=== PATIENT | male | born 1945 | race Caucasian/White ===

== ENCOUNTER 2024-06-14 12:19 | Emergency (ER) | payer MEDICARE, OTHER, SELFPAY ==
--- NOTE | 2024-06-14 12:24 | ED_ITS ---
HPI - Skin/Abscess/Foreign Bdy General Chief complaint: Skin/Abscess/Foreign Body Stated complaint: Rash on stomach Time Seen by Provider: 06/14/24 12:24 Source: patient Mode of arrival: ambulatory Limitations: no limitations History of Present Illness HPI narrative: Patient is an 78-year-old male who presents with 2 weeks of progressing rash to left side of trunk. States it started as a few bumps then became red and itchy. Has been using Cereve moisturizer with anti-itch. Patient states the rash has not been painful. Does have 1 dose of shingles vaccine but did not get a 2nd due to reaction. Patient denies any fever, chills, nausea, vomiting, diarrhea. Patient states he feels fine other than the rash looking worse. Related Data Home Medications ?Medication ?Instructions ?Recorded ?Confirmed ?Last Taken ?Type amiodarone 200 mg tablet mg 06/14/24 Unknown History apixaban 5 mg tablet (Eliquis) mg 06/14/24 Unknown History carvedilol 25 mg tablet mg 06/14/24 Unknown History dapagliflozin propanediol 10 mg mg 06/14/24 Unknown History tablet (Farxiga) tizanidine 2 mg tablet mg 06/14/24 Unknown History Allergies Allergy/AdvReac Type Severity Reaction Status Date / Time No Known Allergies Allergy Verified 06/14/24 12:44 Review of Systems 2 Review of Systems: All systems reviewed & are unremarkable except as noted in HPI and below Constitutional: Constitutional: Denies body ache(s), Denies chills, Denies fatigue, Denies fever(s), Denies headache(s), Denies malaise and Denies weakness Eyes: Eyes: Denies blurry vision, Denies irritation and Denies loss of vision ENT: Denies otalgia, Denies headache(s), Denies nasal discharge, Denies sinus pain and Denies sore throat Cardiovascular: Cardiovascular: Denies chest pain, Denies irregular heart rhythm and Denies dyspnea Respiratory: Respiratory: Denies dyspnea Gastrointestinal: Gastrointestinal: Denies abdominal pain, Denies melena, Denies hematochezia, Denies diarrhea, Denies nausea and Denies vomiting Musculoskeletal: Musculoskeletal: Denies back pain, Denies myalgias and Denies arthralgias Integumentary/Breasts: Skin/Breast: Reports pruritus and Reports rash Neurologic: Denies headache(s), Denies loss of vision and Denies weakness Psychiatric: Psychiatric: Reports no additional psychiatric complaints Endocrine: Endocrine: Denies fatigue PMFSH Comments At time of signature, agree with nursing past medical, surgical, social and family history. There is no relevant family history pertinent to the presenting complaint. Exam 2 Const: General: cooperative, healthy appearing, comfortable, no acute distress and well nourished Nutritional Appearance: well nourished O rientation/consciousness: patient oriented x3 Limitations: no limitations HENMT: Head: normal to inspection, normocephalic and atraumatic Ears: h earing grossly normal bilaterally and external ears normal Face/Nose/Sinus: N ormal external nose present, normal facial exam and face symmetric Face and sinus: normal facial exam and face symmetric Mouth: Yes lip normal Eyes: General: appearance normal, both eyes and all related structures A lignment and Position: alignment normal and position normal Periorbital: p eriorbital findings normal Eyelids: eyelids normal Pupils: Equal, round and reactive pupils present EOM: EOMs intact bilaterally Neck: Neck: normal visual inspection, full ROM and supple Chest: Chest palpation & inspection: normal inspection of the chest Resp: Effort & Inspection: normal respiratory effort and able to speak in complete sentences Auscultation: clear to auscultation bilaterally Cardio: Rate: regular rate Rhythm: regular rhythm Heart sounds: S1 normal heart sound present and S2 normal heart sound present GI: Inspection: normal to inspection Skin: General skin exam: normal color Rashes: rashes noted left truncal size (see images below) and surface warm Other: Neuro: General: patient oriented x3 and moves all extremities Cranial nerves: Yes Equal, round and reactive pupils present Speech: normal speech Gait exam (Neuro): Normal gait present Extrem: General: normal to inspection, full ROM and no edema Psych: Appearance: grossly normal and well kempt Mental Status: mental status grossly normal Speech and movement: Normal speech and movement present Affect: normal affect Attitude: cooperative Thought process: Normal thought process present Course Course Emergency Course: Patient is aware of diagnosis, understands and agrees to treatment plan. Anticipatory guidance given. Patient agrees to follow-up as directed and is aware of reasons to seek care at the emergency department. Portions of this record may have been created with voice recognition software Level of Care: Express Care Visit Vital Signs Vital signs: Reviewed MDM - Skin/Abscess/Foreign Bdy MDM Narrative Medical decision making narrative: Permission granted for pictures from patient. Substantial rash as seen in pictures. Consistent with healing shingles rash as it does not cross midline and follows dermatome. Surrounding erythema and warmth consistent with cellulitis. Will treat with antibiotics. Encourage patient to continue use of Cereve or Aquaphor to keep rash moist. Instructed patient to follow-up with PCP in 1 week if not improving. Did educate patient that rash may take up to 6 weeks to fully heal Pt well hydrated appearing, in no respiratory distress, hemodynamically stable. Recommend supportive care. The patient is stable at time of discharge the clinical impression was discussed and the patient was given the opportunity to ask questions, which were addressed as completely as possible given the information available at present. Anticipatory guidance and return to care precautions were discussed and the importance of primary care follow-up was stressed and encouraged. The patient voiced understanding of the plan, indications to return, and the need for follow-up. Exam findings show no acute concerns or changes Patient is appropriate for outpatient treatment and follow-up. Differential Diagnosis Differential diagnosis: Likely abscess of skin or subcutaneous tissue, herpes zoster, allergic reaction to drug, cellulitis, eczema and contact dermatitis Medical Records Attestation: I reviewed the patient's medical records. Discharge Plan Discharge Clinical Impression: Shingles Qualifiers: Herpes zoster complications: without complications Qualified Code(s): B02.9 - Zoster without complications Cellulitis Qualifiers: Site of cellulitis: trunk Site of cellulitis of trunk: unspecified site Q ualified Code(s): L03.319 - Cellulitis of trunk, unspecified Patient Disposition: Home Condition: Stable Instructions: Shingles (ED), Cellulitis (ED) Additional Instructions: Take antibiotics as prescribed. Continue to use your moisturizer or Aquaphor on rash to prevent it from drying out. Alternate Tylenol and Motrin for pain, body aches, fever. You may take 2 regular strength Tylenol every 4 hours, alternate with 3 regular strength Motrin every 6 hours so you are taking something every 2-3 hours. Shingles pain/rash can last weeks, sometimes months. If you experience any worsening redness, swelling, streaking (red lines), fever or chills please go to the ER. Follow-up with your doctor in the next week if no improvement. Patient Language: Romansh Prescriptions: New cephalexin 500 mg capsule 500 mg PO QID 7 Days Qty: 28 0RF No Action carvedilol 25 mg tablet tizanidine 2 mg tablet amiodarone 200 mg tablet Eliquis 5 mg tablet dapagliflozin propanediol [Farxiga] 10 mg tablet Follow-up/Referrals: Eric,Rios Summers MD [Primary Care Provider] - 3 Days Time of Disposition: 13:08
[2024-06-14 12:33] VITALS: BP 104/75; PULSE 93; RESP 16; TEMP 35.8; O2SAT 96
--- OUTSIDE RECORDS SUMMARY | 2024-06-14 13:29 | XMS_ITS | Clinical Summary ---
Author Organization [facility] at the [facility] Office [facility] Address [address] [place] [address] Care Team Providers Care Preprint Analyst Name Role Phone Rios Reyes MD Primary Care Provid er Abhi Stearns MD Unavailable [phone] Allergies No known active allergies Medications elijfhzn-ddo-XF-lyc open-lutein 0.4-2-250 mg-mg-mcg tablet Take 1 tablet by mouth daily Active esomeprazole DR (NexIUM) 20 mg capsule Take 1 capsule (20 mg total) by mouth daily 6 Active predniSONE (DELTASONE) 10 mg tablet Take 1 tablet (10 mg) by mouth daily Active Eliquis 5 mg tabletIndications:C hronic anticoagulation TAKE 1 TABLET(5 MG) BY MOUTH TWICE DAILY 180 tablet 3 4 Active carvediloL (COREG) 25 mg tabletIndications:P aroxysmal atrial fibrillation (HCC) TAKE 1 TABLET(25 MG) BY MOUTH TWICE DAILY WITH MEALS 180 tablet 3 4 Active magnesium oxide (MAG-OX) 400 mg (241.3 mg elemental magnesium) tablet 4 Active baclofen (LIORESAL) 5 mg tablet Take 1 tablet (5 mg total) by mouth 3 (three) times a day as needed 4 Active dapagliflozin propanediol (FARXIGA) 10 mg tablet TAKE 1/2 TABLET(5 MG) BY MOUTH DAILY 45 tablet 3 5 Active lisinopriL (PRINIVIL,ZESTRIL) 10 mg tablet Take 1 tablet (10 mg total) by mouth daily 90 tablet 1 4 025 Discontin ued(Other ) amiodarone (PACERONE) 200 mg tablet Take 1 tablet (200 mg total) by mouth daily 90 tablet 3 5 025 Discontin ued(Thera py completed ) spironolactone (ALDACTONE) 25 mg tablet Take 0.5 tablets (12.5 mg total) by mouth daily 45 tablet 3 5 025 Discontin ued(Other ) Active Problems Problem Noted Date Diagnosed Date Anticoagulation management encounter 05/23/2024 Heart failure with reduced ejection fraction Acute respiratory failure 01/31/2024 Respiratory infection 01/30/2024 Preoperative cardiovascular examination 10/09/19 History of DVT (deep vein thrombosis) 05/25/2023 Other thrombophilia 01/09/2023 Paroxysmal atrial fibrillation 12/25/2022 Pulmonary embolism 12/19/2021 Assessment & Plan (07/21/2022 1:23 PM CDT): History of pulmonary emboli on Eliquis patient is tolerating well and offering no new complaints prior advised to continue same Shortness of breath 10/11/2021 Hematoma of leg, left, initial encounter 022 Overview (03/12/2021): Added automatically from request for surgery [id number] Injury of lower extremity 07/05/2020 Uncontrolled type 2 diabetes mellitus with hyper glycemia 07/05/2020 Essential hypertension 10/06/2019 Assessment & Plan (07/21/2022 1:22 PM CDT): Longstanding see hypertension patient is tolerating medications well blood pressure under good control patient to continue present medication and salt restriction Assessment & Plan (04/12/2020 1:52 PM REGISTERED DIETETIC TECHNICIAN): Well controlled Assessment & Plan (10/06/2019 2:24 PM CDT): Repeat 140/80. Patient states blood pressures run low which showed home. Generally systolic 120 in below LBBB (left bundle branch block) 06/24/2018 Assessment & Plan (04/12/2020 1:52 PM REGISTERED DIETETIC TECHNICIAN): Treated with INSURANCE EXAMINER. Not dependent Assessment & Plan (10/06/2019 2:24 PM CDT): Treated with INSURANCE EXAMINER Assessment & Plan (06/24/2018 1:44 PM CDT): INSURANCE EXAMINER Cardiac resynchronization th erapy defibrillator (INSURANCE EXAMINER-D) in place 06/24/2018 Assessment & Plan (07/21/2022 1:21 PM CDT): Patient has a dilated cardiomyopathy with left bundle-branch block received a biventricular pacemaker patient has markedly improved after that and patient is a offering no complaint device is functioning is being monitored Assessment & Plan (04/12/2020 1:45 PM REGISTERED DIETETIC TECHNICIAN): Check today shows normal function. Battery 6 months. Stable impedance excellent threshold. In sensing. No events. Pacing 96% bi V. No arrhythmias Assessment & Plan (10/06/2019 2:23 PM CDT): Check shows normal function. Underlying rhythm self sinus rhythm left bundle- branch block. 70% a paced 90% V paced. Stable lead function. Slight increase in LV thresholds and output increased. No events. Battery 1 year Assessment & Plan (06/24/2018 2:01 PM CDT): Normal function. Stable LV lead function around 3 volts at 0.6 milliseconds. 100% bi V paced 71% atrial paced no a arrhythmias. Better life about 2 years Dilated cardiomyopathy 06/24/2018 Assessment & Plan (07/21/2022 1:22 PM CDT): Patient has dilated cardiomyopathy on unloading therapy with lisinopril and Coreg he is tolerating well patient has no orthopnea PND or ankle edema will recheck the electrolytes renal function and proBNP patient to continue salt restricted diet Assessment & Plan (04/12/2020 1:52 PM REGISTERED DIETETIC TECHNICIAN): Continue lisinopril and Toprol. Class 1. Assessment & Plan (10/06/2019 2:23 PM CDT): Resolved with INSURANCE EXAMINER. Continue lisinopril and Toprol Assessment & Plan (06/24/2018 2:00 PM CDT): No CHF. Continue lisinopril and metoprolol 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CMS/HCC) 05/11/2017 Biventricular implantable ca rdioverter-defibrillator (ICD) in situ 05/23/2015 Overview (02/09/2024): Last Assessment & Plan: Check today shows normal function. Battery 6 months. Stable impedance excellent threshold. In sensing. No events. Pacing 96% bi V. No arrhythmias Encounters Date Type Department Care Team Description 06/10/2024 Orders Only [facility] PreAdmission Testing [address] [place] [address] Pepper Collins RN 06/09/2024 10:15 AM CDT Office Visit [facility] Orthopedics and Sports Medicine [address] [place] [phone] Wilmar Samayoa DO Traumatic complete tear of left rotator cuff, initial encounter (Primary Dx); Primary osteoarthritis of left shoulder 06/07/2024 11:30 AM CDT Ancillary Procedure [facility] [address] [facility] [address] [place] [phone] LBBB (left bundle branch block); Paroxysmal atrial fibrillation (HCC) 05/27/2024 9:30 AM CDT Clinical Support [facility] Cardiology [address] [facility] [address] [phone] Essential hypertension (Primary Dx) 05/24/2024 Orders Only Arrhythmia Center [address] [facility] [address] [place] [phone] Laura Mckoy NP LBBB (left bundle branch block) (Primary Dx); Paroxysmal atrial fibrillation (HCC) 05/23/2024 3:00 PM CDT Office Visit [facility] [address] [place] [phone] Laura Mckoy NP Cardiac resynchronization therapy defibrillator (INSURANCE EXAMINER-D) in place (Primary Dx); LBBB (left bundle branch block); Dilated cardiomyopathy (HCC); Paroxysmal atrial fibrillation (HCC); Anticoagulation management encounter 05/23/2024 2:45 PM CDT Ancillary Procedure [facility] [address] [place] [phone] Automatic implantable cardiac defibrillator in situ (Primary Dx); Biventricular implantable cardioverter-defibrilla tor (ICD) in situ; LBBB (left bundle branch block) 05/23/2024 Telephone Ar[facility]hythmia Center [address] [place] [phone] Laura Mckoy NP 05/17/2024 Results Follow-Up [facility] Cardiology [address] [place] [address] [phone] Shun Waters RN Hyperkalemia (Primary Dx) 05/16/2024 10:45 AM CDT Lab [facility] Office Building [address] [address] LBBB (left bundle branch block); Cardiac resynchronization therapy defibrillator (INSURANCE EXAMINER-D) in place; Dilated cardiomyopathy (HCC); Essential hypertension; Paroxysmal atrial fibrillation (HCC); Biventricular implantable cardioverter-defibrilla tor (ICD) in situ; Chronic pulmonary embolism, unspecified pulmonary embolism type, unspecified whether acute cor pulmonale present (HCC); History of DVT (deep vein thrombosis); Heart failure with reduced ejection fraction (HCC) 05/04/2024 Orders Only [facility] [address] [place] [phone] Laura Mckoy NP Biventricular implantable cardioverter-defibrilla tor (ICD) in situ (Primary Dx); LBBB (left bundle branch block) 05/02/2024 Telephone Arrhythmia Center [facility] [address] [facility] [address] [place] [phone] Laura Mckoy NP Scheduling Appointments 04/29/2024 9:45 AM REGISTERED DIETETIC TECHNICIAN Office Visit [facility] Cardiology [address] [place] [phone] Kevin Robb MD LBBB (left bundle branch block) (Primary Dx); Cardiac resynchronization therapy defibrillator (INSURANCE EXAMINER-D) in place; Dilated cardiomyopathy (HCC); Essential hypertension; Paroxysmal atrial fibrillation (HCC); Biventricular implantable cardioverter-defibrilla tor (ICD) in situ; Chronic pulmonary embolism, unspecified pulmonary embolism type, unspecified whether acute cor pulmonale present (HCC); History of DVT (deep vein thrombosis); Heart failure with reduced ejection fraction (HCC) 04/01/2024 9:15 AM REGISTERED DIETETIC TECHNICIAN Ancillary Procedure [address] [phone] Cardiac resynchronization therapy defibrillator (INSURANCE EXAMINER-D) in place; LBBB (left bundle branch block); Dilated cardiomyopathy (HCC); Paroxysmal atrial fibrillation (HCC) 03/30/2024 8:45 AM REGISTERED DIETETIC TECHNICIAN Office Visit [facility] Family Medicine [address] [phone] Rios Reyes MD Chronic bilateral low back pain without sciatica (Primary Dx); Lumbar foraminal stenosis; Spinal stenosis of lumbar region with neurogenic claudication; Chronic left shoulder pain; Traumatic complete tear of left rotator cuff, subsequent encounter; Type 2 diabetes mellitus without complication, without long-term current use of insulin (HCC); Encounter for diabetic foot exam (HCC); Essential hypertension; Mixed hyperlipidemia; Paroxysmal atrial fibrillation (HCC); Chronic anticoagulation; Dilated cardiomyopathy (HCC); Biventricular implantable cardioverter-defibrilla tor (ICD) in situ; 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HCC); Overweight; Preoperative clearance 03/22/2024 2:00 PM REGISTERED DIETETIC TECHNICIAN Office Visit [facility] Cardiology [address] [place] [phone] Shiela Randolph, VAUGHN LBBB (left bundle branch block) (Primary Dx); Essential hypertension; Dilated cardiomyopathy (HCC); Paroxysmal atrial fibrillation (HCC); History of DVT (deep vein thrombosis); Preoperative cardiovascular examination 03/22/2024 Telephone [facility] Cardiology [address] [facility] [address] [place] [phone] Shiela Randolph NP 03/17/2024 9:15 AM REGISTERED DIETETIC TECHNICIAN Therapy [facility] Medical Office Bldg 1 OP Physical Therapy [address] [facility] [address] [place] [address] Lyndon Sandoval, CHRISS Traumatic complete tear of left rotator cuff, initial encounter (Primary Dx) from Last 3 Months Immunizations Immunization Administration Dates Next Due Influenza, Quadrivalent, Hig h Dose, Preservative Free, Intrr 12/04/2020 Influenza, Unspecified 02/02/2024(Deferr ed: Patient Refused),01/09/2023(Deferred: Patient Refused),12/16/2022,11/26/2021, 019,01/21/2018 Pfizer SARS-CoV-2 Monovalent Vaccination (12+ Yrs) PURPLE 05/09/2020,04/05/2020 Pneumococcal Conjugate PCV 13 02/02/2019 Pneumococcal Polysaccharide PPV23 02/17/2020,07/2018 Surgical History Surgery Date Site/Laterality Comments CARDIAC DEFIBRILLATOR PLACEMENT Left medtronic ANKLE FRACTURE SURGERY Left hardware FINGER SURGERY left index finger ligament and nerve repair CARDIAC CATHETERIZATION no intervention COLONOSCOPY normal CATARACT EXTRACTION 2010 LAMINECTOMY Medical History Medical History Date Comments Nonischemic cardiomyopathy (HCC) Left bundle branch block Occasional tremors d/t myastheni a gravis 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HCC) Dental bridge present permanent History of DVT (deep vein thrombosis) RLE. was on Eliquis last dose was 11/05/20 Clotting disorder Heart disease 2016 Family History Medical History Relation Name Comments Diabetes Brother 1 Miguel Knell Diabetes Brother 2 Miguel Early Brother 2 Miguel Heart attack Brother 2 Miguel Emphysema Father Emphysema Mother Relation Name Status Comments Brother 1 Miguel Knell Brother 2 Miguel Father Mother Social History Tobacco Use Types Packs/Day Years Used Date Smoking Tobacco: Never Smokeless Tobacco: Never Tobacco Cessation:Counseling Given: Not Answered Alcohol Use Standard Drinks/Week Comments Yes 1 (1 standard drink = 0.6 oz pur e alcohol) Social Connection and Isolat ion Panel [NHANES] Answer Date Recorded In a typical week, how many times do you talk on the phone with family, friends, or neighbors? More than three times a week 10/18/2021 How often do you get togethe r with friends or relatives? More than three times a week 10/18/2021 How often do you attend chur ch or zoroastrian services? Never 10/18/2021 Do you belong to any clubs o r organizations such as christianity groups, unions, fraternal or athletic groups, or school groups? Yes 10/18/2021 How often do you attend meet ings of the clubs or organizations you belong to? More than 4 times per year 10/18/2021 Are you , , di vorced, , never , or living with a partner? Never 10/18/2021 AUDIT-C Answer Date Recorded Q1: How often do you have a drink containing alcohol? Never 01/09/2023 Q2: How many drinks containi ng alcohol do you have on a typical day when you are drinking? Patient does not drink Q3: How often do you have si x or more drinks on one occasion? Never 01/09/2023 Overall Financial Resource Strain (CARDIA) Answe r Date Recorded How hard is it for you to pa y for the very basics like food, housing, medical care, and heating? Not hard at all 10/18/2021 PHQ-2 Answer Date Recorded PHQ-2 Total Score 0 01/04/2024 PRAPARE - Transportation Answer Date Re corded In the past 12 months, has l ack of transportation kept you from medical appointments or from getting medications? No 10/07 In the past 12 months, has l ack of transportation kept you from meetings, work, or from getting things needed for daily living? No 10/18/2021 Housing Stability Vital Sign Answer Vipul e Recorded In the last 12 months, was t here a time when you were not able to pay the mortgage or rent on time? No 10/18/2021 In the last 12 months, how many places have you lived? 1 10/18/2021 In the last 12 months, was t here a time when you did not have a steady place to sleep or slept in a mcc (including now)? No 10/18/2021 PHQ-9 Answer Date Recorded PHQ-9 Total Score 0 01/04/2024 Sex and Gender Information Value Date Recorded Sex Assigned at Not on file Legal Sex Male 9:14 AM REGISTERED DIETETIC TECHNICIAN Gender Identity Not on file Sexual Orientation Not on file Obstetrics History Last Filed Vital Signs Vital Sign Reading Time Taken Comments Blood Pressure 110/60 05/27/2024 9:18 AM CDT Pulse 64 05/23/2024 3:37 PM CDT Temperature 36.7 C (98 F) 03/30/2024 8:31 AM REGISTERED DIETETIC TECHNICIAN Respiratory Rate 18 03/30/2024 8:31 AM REGISTERED DIETETIC TECHNICIAN Oxygen Saturation 98% 04/29/2024 9:52 AM REGISTERED DIETETIC TECHNICIAN Inhaled Oxygen Concentration - - Weight 68.9 kg (152 lb) 05/23/2024 3:37 PM CDT Height 165.1 cm (5' 5 ) 05/23/2024 3:37 PM CDT Body Mass Index 25.29 05/23/2024 3:37 PM CDT Plan of Treatment Health Maintenance Due Date Last Done Comments DTaP/Tdap/Td Vaccine (1 - Tdap) [birth year]06/1956 Hepatitis B Screening 10/06/1961 Zoster Vaccine (1 of 2) 10/06/1993 Hemoglobin A1C 07/07/2023 01/05/2023, 12/03/2021, 04/05/2019, Additional history exists Covid-19 Vaccine (5 - 2023-2 5 season) 2023 12/25/2021, 12/04/2020, 05/09/2020, Additional history exists Albumin Creatinine Ratio, Urine 01/07/2024 , 02/07/2022 Lipid Panel 10/01/2024 10/02/2023, 12/09, 02/06/2022, Additional history exists Influenza Vaccine (Season Ended) 2024 12/16/2022, 11/26/2021, 12/04/2020, Additional history exists Dilated Eye Exam 11/23/2024 11/24/2023, 11/2021, 11/01/2019 Depression Screening 01/10/2025 01/11/2024, 01/11/2024, 01/09/2023, Additional history exists Fall Risk Assessment 01/10/2025 01/11/2024, 01/09/2023, 01/02/2022, Additional history exists Well Visit 65+ 01/10/2025 01/11/2024, 06/2023, 01/09/2023, Additional history exists Foot Exam 03/30/2025 03/30/2024, 03/10, 01/11/2024, Additional history exists eGFR 05/16/2025 05/16/2024, 09/07, 01/05/2023, Additional history exists Pneumococcal vaccine 65+ Completed 020, 02/10/2019, 02/02/2019 Medical Devices Implanted Type Area Licensed Practical Nurse Device Identifier Shelf Expiration Date Model / Serial / Lot Medtronic Inc [id number] Defib Cardiac Bicknell Hf 2 Chamber Df-1 Pin Plug Is4 - [id number] - [id number] Implanted:Qty: 1 on 11/15/2020 by Marcial Brumfiedl MD at [facility] ICD Left: Chest Medtronic Inc 08/03/2021 [id number] / [id number] / Medtronic Ra [place] [id number]/23/19 16 Implanted:05/22 (Quantity not on file) [place] Heart Medtronic Cardiac Rhythm Mgmt 5076-45 / [id number] / Medtronic Rv [place] [id number]/23/19 16 Implanted:05/22 (Quantity not on file) [place] Heart Medtronic Cardiac Rhythm Mgmt 6944-58 / [id number] / Medtronic Lv [place] [id number]/23/19 16 Implanted:05/22 (Quantity not on file) [place] Heart Medtronic Cardiac Rhythm Mgmt 4598-88 / [id number] / Procedures Procedure Name Priority Date/Time Associated Diagnosis Comments DEVICE CHECK - IN OFFICE Routine 06/07/2024 11:05 AM CDT LBBB (left bundle branch block) Paroxysmal atrial fibrillation (HCC) ECG 12-[place] Routine 05/23/2024 3:36 PM CDT Cardiac resynchronization therapy defibrillator (INSURANCE EXAMINER-D) in place DEVICE CHECK - IN OFFICE Routine 05/23/2024 2:01 PM CDT Biventricular implantable cardioverter-defibrillat or (ICD) in situ LBBB (left bundle branch block) EGFR Routine 05/16/2024 10:50 AM CDT LBBB (left bundle branch block) Cardiac resynchronization therapy defibrillator (INSURANCE EXAMINER-D) in place Dilated cardiomyopathy (HCC) Essential hypertension Paroxysmal atrial fibrillation (HCC) Biventricular implantable cardioverter-defibrillat or (ICD) in situ Chronic pulmonary embolism, unspecified pulmonary embolism type, unspecified whether acute cor pulmonale present (HCC) History of DVT (deep vein thrombosis) Heart failure with reduced ejection fraction (HCC) MAGNESIUM Routine 05/16/2024 10:50 AM CDT LBBB (left bundle branch block) Cardiac resynchronization therapy defibrillator (INSURANCE EXAMINER-D) in place Dilated cardiomyopathy (HCC) Essential hypertension Paroxysmal atrial fibrillation (HCC) Biventricular implantable cardioverter-defibrillat or (ICD) in situ Chronic pulmonary embolism, unspecified pulmonary embolism type, unspecified whether acute cor pulmonale present (HCC) History of DVT (deep vein thrombosis) Heart failure with reduced ejection fraction (HCC) BASIC METABOLIC PANEL Routine 05/16/2024 10:50 AM CDT LBBB (left bundle branch block) Cardiac resynchronization therapy defibrillator (INSURANCE EXAMINER-D) in place Dilated cardiomyopathy (HCC) Essential hypertension Paroxysmal atrial fibrillation (HCC) Biventricular implantable cardioverter-defibrillat or (ICD) in situ Chronic pulmonary embolism, unspecified pulmonary embolism type, unspecified whether acute cor pulmonale present (HCC) History of DVT (deep vein thrombosis) Heart failure with reduced ejection fraction (HCC) ECG 12-[place] Routine 03/22/2024 1:58 PM REGISTERED DIETETIC TECHNICIAN LBBB (left bundle branch block) HM DIABETES EYE EXAM Routine 11/24/2023 LIPID PANEL Routine 10/02/2023 11:18 AM CDT LBBB (left bundle branch block) Paroxysmal atrial fibrillation (HCC) Essential hypertension Dilated cardiomyopathy (HCC) Chronic pulmonary embolism, unspecified pulmonary embolism type, unspecified whether acute cor pulmonale present (HCC) History of DVT (deep vein thrombosis) Biventricular implantable cardioverter-defibrillat or (ICD) in situ ALBUMIN CREATININE RATIO, URINE Routine 01/06/2023 2:00 PM CDT Inadequately controlled diabetes mellitus (HCC) Essential hypertension HEMOGLOBIN A1C Routine 01/05/2023 8:07 AM CDT Inadequately controlled diabetes mellitus (HCC) Essential hypertension from Last 3 Months or Most Recently Relevant to Health Maintenance Results * DEVICE CHECK - IN OFFICE (06/07/2024 11:05 AM CDT) Anatomical Region Laterality Modality Other Narrative 06/07/2024 11:43 AM CDT The patient brought in to clinic today to check LV thresholds in multi vectors due to battery life only being right at 3 and half years. There were no viable options other than how he is already programmed LV 1 to RV coil, capture threshold is 4.5 volts at [address] Taylor explained the 2 options to him which are merely replace the device and off for short live battery life or placing an epicardial lead by the surgeons which may or may not be effective. The patient decided that at recommended replacement time just replace the device.kb us Laura Mckoy NP [facility] C[facility]AC SERVICES PROCEDURES Final Result * ECG 12 lead (05/23/2024 3:36 PM CDT) us Laura Mckoy NP ECG ORDERABLES Leah l Result * DEVICE CHECK - IN OFFICE (05/23/2024 2:01 PM CDT) Anatomical Region Laterality Modality Other Narrative 05/23/2024 4:35 PM CDT Table formatting from the original result was not included. BiV ICD CHECK (IN OFFICE) Patient ID: Silviano Dickson is a 78 y.o. male. This patient received a Medtronic BiV ICD. They had a routine in office device interrogation on 05/23/24. Device implant indications: Nonischemic dilated cardiomyopathy, AFib, left bundle Interrogation of the patient's device demonstrates the following: Presenting EGM: A paced Bi V paced @ 70 bpm Underlying rhythm: A sensed V sensed at a rate of 63 beats per minute Original Device Settings Right Atrium Right Ventricle Left Ventricle Sensitivity (mV) 0.3 mV 0.3 mV N/A mV Pacing Outputs 1.75 V @ 0.4 ms 2.0 V @ 0.4 ms 5.0 V @ 1.0 ms Testing Measurements Right Atrium Right Ventricle Left Ventricle Sensitivity (mV) 1.0 mV 3.5 mV Not done mV Impedence (Ohms) 380 ohms 855 ohms 361 ohms Pace Threshold 0.875 V @ 0.4 ms 1.0 V @ 0.4 ms 4.25 V @ 1.0 ms Pacing % 75.1 % 98.5 % 98.5 % HV Lead Impedance N/A 50/60 ohms N/A LV threshold is chronically elevated. Battery Status: 1 month to JANNETTE, charge time 4.6 seconds. Episodes last 90 days/Comments: AF Adin 0 %,longest duration 0. There were no treated ventricular arrhythmias noted on today's in office device interrogation. NORMAL DEVICE FUNCTION PROGRAMMED MEDICATIONS: Anti-coagulant(s): Eliquis 5 mg twice daily Anti-arrhythmic(s): Amiodarone 200 mg daily, Coreg 25 mg twice daily PLAN: 1) Medtronic BiV ICD evaluation 2) Medtronic remote transmission scheduled in 3 months. 3) Programming appropriate for device settings Didier Garza, RN Laura Mckoy NP CV CARDIAC SERVICES PROCEDURES Final Result * (ABNORMAL) eGFR (05/16/2024 10:50 AM CDT) eGFR 42(L) >=60 mL/min/1. 73 m2 Comment: Interpretive Data Reference Interval Normal >/= 90 mL/min/1.73m2 Mildly decreased* 60 - 89 mL/min/1.73m2 Mildly to moderately decreased 45 - 59 mL/min/1.73m2 Moderately to severely decreased 30 - 44 mL/min/1.73m2 Severely decreased 15 - 29 mL/min/1.73m2 Kidney Failure < 15 mL/min/1.73m2 *Relative to young adult level Estimated glomerular filtration rate is determined by the 2020 CKD-EPI equation recommended by the National Kid[employer] Foundation (A Unifying Approach to GFR Estimation: Recommendations of the NKF-ASK Task Force on Reassessing the Inclusion of Race in Diagnosing Kidney Disease, JASN 2020). The CKD-EPI equation should not be used for patients with unstable renal function and has not been validated in children and those over 70. Current interpretive data was last reviewed 2021. Testing performed by: [address] [id number] Blood 05/16/2024 10:5 0 AM CDT 05/16/2024 12:27 PM CDT us Kevin Robb MD LAB BLOOD ORDERABLES Final Result Performing Organization Address City/[facility]/ZIP Co de Phone Number DIEGO [address] [place] [address] * (ABNORMAL) Magnesium (05/16/2024 10:50 AM CDT) Magnesium 2.6(H) 1.4 - 2.5 mg/dL Comment:Testing performed by : [address] [address] Blood 05/16/2024 10:5 0 AM CDT 05/16/2024 12:27 PM CDT us Kevin Robb MD LAB BLOOD ORDERABLES Final Result Performing Organization Address City/[facility]/ZIP Co de Phone Number DIE[place] [address] [place] [place] [address] * (ABNORMAL) Basic metabolic panel (05/16/2024 10:50 AM CDT) Sodium 140 135 - 145 mmol/L Comment:Testing performed by : [address] [address] Potassium, pl 5.4(H) 3.3 - 4.9 mmol/L [facility] Comment:Testing performed by : [address] [address] Chloride 107 97 - 110 mmol/L [facility] Comment:Testing performed by : [address] [address] CO2 24 22 - 32 mmol/L [facility] Comment:Testing performed by : [address] [address] Anion gap 9 2 - 15 mmol/L [facility] Comment:Testing performed by : [address] [address] BUN 32(H) 6 - 25 mg/dL [facility] Comment:Testing performed by : [address] [address] Creatinine 1.64(H) 0.80 - 1.30 mg/dL [facility] Comment:Testing performed by : [address] [address] Glucose 144 70 - 199 mg/dL [facility] Comment: Interpretive Data Fasting glucose >/= 126 mg/dl is diagnostic for diabetes. Fasting is defined as no caloric intake for at least 8 hours. Fasting glucose between 100 mg/dl to 125 mg/dl is diagnostic of prediabetes. In a patient with classic symptoms of hyperglycemia or hyperglycemic crisis, a random glucose >/= 200 mg/dl is diagnostic for diabetes. In the absence of unequivocal hyperglycemia, results should be confirmed by repeat testing. The classification and Diagnosis of Diabetes Diabetes Care 202; 46: S19-S40. Current interpretive data was last revised 2022. Testing performed by: [address] [address] Calcium 9.1 8.5 - 10.3 mg/dL [facility] Comment:Testing performed by : [address] [address] Blood 05/16/2024 10:5 0 AM CDT 05/16/2024 12:27 PM CDT Kevin Robb MD LAB BLOOD ORDERABLES Final Result [facility] [address] [facility] [place] [address] * ECG 12 lead (03/22/2024 1:58 PM REGISTERED DIETETIC TECHNICIAN) Shiela Yumiko Randolph RANGE MANAGER ECG ORDERABLES Final Resul t * DIABETES EYE EXAM (11/24/2023) SCRIBED DIABETIC DILATED EYE EXAM Normal us Historical Provider HEALTH MAINTENANCE Final Result * Lipid panel (10/02/2023 11:18 AM CDT) Cholesterol 194 30 - 199 mg/dL Comment: Interpretive Data Ages < or = 19 years Acceptable: <170 mg/dL Borderline high: 170-199 mg/dL High: >or= 200 mg/dL Ages > or = 20 years Desirable: <200 mg/dL Borderline high: 200-239 mg/dL High: >or= 240 mg/dL Literature References: 1. Expert Panel on Integrated Guidelines for Cardiovascular Health and Risk Reduction in Children and Adolescents. Pediatrics 2011;128:S213 2. NCEP Expert Panel. Circulation 2004;110:227 Current Interpretive Data was last revised on 2017. Testing performed by: [facility], [address] [place] [address]., [address] Triglycerides 116 <=149 mg/dL [facility] Comment: Interpretive Data Ages < or = 9 years Acceptable: <75 mg/dL Borderline high: 75-99 mg/dL High: >or= 100 mg/dL Ages 10 to 20 years Acceptable: <90 mg/dL Borderline high: 90-129 mg/dL High: >or= 130 mg/dL Ages > or = 20 years Desirable: <150 mg/dL Borderline high: 150-199 mg/dL High: 200-499 mg/dL Very high: >or= 499 mg/dL Literature References: 1. Expert Panel on Integrated Guidelines for Cardiovascular Health and Risk Reduction in Children and Adolescents. Pediatrics 2011;128:S213 2. NCEP Expert Panel. Circulation 2004;110:227 Current Interpretive Data was last revised on 2017. Testing performed by: [address] [address] HDL 75 >=40 mg/dL [facility] Comment: Interpretive Data Ages < or = 19 years Acceptable: >45 mg/dL Borderline low: 40-45 mg/dL Low: <40 mg/dL Ages > or = 20 years Desirable: >or= 60 mg/dL Low: <40 mg/dL Literature References: 1. Expert Panel on Integrated Guidelines for Cardiovascular Health and Risk Reduction in Children and Adolescents. Pediatrics 2011;128:S213 2. NCEP Expert Panel. Circulation 2004;110:227 Current Interpretive Data was last revised on 2017. Testing performed by: [address] [address] LDL, calculated 96 <=129 mg/dL [facility] Comment: Interpretive Data Ages < or = 19 years Acceptable: <110 mg/dL Borderline high: 110-129 mg/dL High: >or= 130 mg/dL Ages > or = 20 years Optimal: <100 mg/dL Near optimal: 100-129 mg/dL Borderline high: 130-159 mg/dL High: >160 mg/dL Literature References: 1. Expert Panel on Integrated Guidelines for Cardiovascular Health and Risk Reduction in Children and Adolescents. Pediatrics 2011;128:S213 2. NCEP Expert Panel. Circulation 2004;110:227 Current Interpretive Data was last revised on 2017. Testing performed by: [address] [address] Non-HDL Cholesterol 119 mg/dL [facility] Comment: Interpretive Data Ages < or = 19 years Acceptable: <120 mg/dL Borderline high: 120-144 mg/dL High: >145 mg/dL Ages > or = 20 years When triglycerides are >200 mg/dL, Non-HDL cholesterol is a secondary target of therapy with treatment goals that are 30 mg/dL greater than the LDL cholesterol target. Literature References: 1. Expert Panel on Integrated Guidelines for Cardiovascular Health and Risk Reduction in Children and Adolescents. Pediatrics 2011;128:S213 2. NCEP Expert Panel. Circulation 2004;110:227 Current Interpretive Data was last revised on 2017. Testing performed by: [address] [address] Chol/HDL ratio 3 [facility] Comment:Testing performed by : [address] [address] Blood 10/02/2023 11:1 8 AM CDT 10/02/2023 1:49 PM CDT Kevin Robb MD LAB BLOOD ORDERABLES Final Result Performing Organization Address [facility] Co de Phone Number [place] [id number] [facility] [place] [address] * Albumin Creatinine Ratio, Urine (01/06/2023 2:00 PM CDT) Albumin Ur <12.0 mg/L [facility] Comment: Interpretive Data No reference range established. Current interpretive data was last revised 2018. Testing performed by: [address] [address] Creatinine Ur 65.1 mg/dL [facility] Comment: Interpretive Data No reference range established. Current interpretive data was last revised 2018. Testing performed by: [address] [address] Albumin Creatinine Ratio, Ur <18 1 - 29 mg/g [facility] Comment:Testing performed by : [address] [address] Urine 01/06/2023 2:00 PM CDT 01/06/2023 5:41 PM CDT Rios Reyes MD LAB URINE ORDERABLES Final Result Performing Organization Address City/[facility] Co de Phone Number [facility] [address] [facility] [place] [address] * (ABNORMAL) Hemoglobin A1c (01/05/2023 8:07 AM CDT) Hgb A1C 7.2(H) 4.0 - 5.6 % [facility] Comment:Testing performed by : [address] [address] Estimated Average Glucose 160 mg/dL [facility] [place] Comment: The ADA recommends reporting an estimated Average Glucose (eAG) with all Hemoglobin A1c results using the equation derived from a study of 507 normal and diabetic adults. Minority populations were underrepresented and children were not included. (Diabetes Care 31:5765-9914, 2008). The eAG is not equivalent to a fasting glucose. Testing performed by: [facility], [address] [place] [address]., [address] Blood 01/05/2023 8:07 AM CDT 01/05/2023 10:12 AM CDT Rios Reyes MD LAB BLOOD ORDERABLES Final Result [facility] [place] [address] [facility] Department [place] [address] from Last 3 Months or Most Recently Relevant to Health Maintenance Insurance MEDICARE [facility] [place] [address] MEDICARE [employer] [place] [address] Advance Directives For more information, please contact: [phone] * Full Code (Latest Code Status on File) Date Activated Date Inactivated Comments 10/11/2021 11:03 AM 10/17/2021 4:20 PM Care Teams Preprint Analyst Relationship Specialty Start Date End Date Rios Reyes MD [address] [place] [address] PCP - General Family Medicine 07/04/20 Abhi Stearns MD [address] [place] [address] X Ray Technologist Cardiovascular Disease 11/09/20
--- OUTSIDE RECORDS SUMMARY | 2024-06-14 13:29 | XMS_ITS | Encounter Summary ---
Author Organization [facility] Care Team Providers Care Stopboard Assembler Name Role Phone No, Physician Primary Care Provider [phone] Rios Reyes MD Primary Care Provid er Abhi Stearns MD Unavailable [phone] Antoinette Howard RN Unavailable [phone] WhitlockPenny mckenzie [facility] Unavailable [phone] Encounter Details Date Type Department Care Team (Latest Contact Info) Description 08/25/2015 Orders Only [facility] CLINCONV ProviderElle MD [address] [place] [address] Social History Tobacco Use Types Packs/Day Years Used Date Smoking Tobacco: Never Assessed Sex and Gender Information Value Date Recorded Sex Assigned at Not on file 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 Historical Provider [facility] REID BOWER Final Result documented in this encounter Visit Diagnoses Not on filedocumented in this encounter Care Teams Stopboard Assembler Relationship Specialty Start Date End Date No, Physician PCP - General 06/16/18 07/03/20 Rios Reyes MD [address] [place] [address] PCP - General Family Medicine 07/04/20 Abhi Stearns MD [address] [place] [address] Sweet Dough Mixer Cardiovascular Disease 11/09/20 Antoinette Howard, RN [address] [place] [address] Pole Sander Operator 10/18/21 11/13/21 Penny Whitlock RP [address] [place] [address] Pharmacist Pharmacy 10/18/21 10/29/21 documented as of this encounter
--- OUTSIDE RECORDS SUMMARY | 2024-06-14 13:29 | XMS_ITS | Clinical Summary ---
Author Organization [facility] Address [address] [place] [address] Care Team Providers Care Organizational Development Specialist Name Role Phone Rios Reyes MD Primary Care Provider [phone] Source Comments [facility],non-owned Affiliates and Associated Physician Practices is amultiple site organization consisting of ambulatory clinics and hospital sitesin [place], [place], [place] and [place]. This disclosure is being madepursuant to the Care Everywhere program and may not contain all information available regarding this patient. Last updated 17.[facility] Allergies No known active allergies Medications * Be aware that medications may not be up to date on this document. Alwaysverify current medications with the patient. Medication Sig Dispensed Refills Start Date End Date Status metoprolol succinate XL 24hr (TOPROL XL) 25 MG tablet TK 1 T PO QD 3 10/29/2017 Active lisinopril (PRINIVIL; ZESTRIL) 10 MG tablet TK 1 T PO QD 3 10/29/2017 Active Multiple Vitamins-Minerals (MULTI FOR HIM 50+) TABS Take by mouth once daily Active lidocaine (XYLOCAINE) 5 % ointment Apply 1 tube to affected area every 14 days 35.44 g 5 03/30/2020 Active Additional Information Patient not taking.Reported on 04/15/2022 mycophenolate (CELLCEPT) 500 MG tabletIndications:T aking 1/2 tab BID Take 0.5 (one-half) tablet by mouth 2 times daily Reasons: Taking 1/2 tab BID 30 tablet 5 05/21/2021 Active Additional Information Patient not taking.Reported on 04/15/2022 apixaban (ELIQUIS) 5 MG tablet Take 1 (one) tablet by mouth as directed Active lidocaine (XYLOCAINE) 5 % ointment Active lisinopril (PRINIVIL; ZESTRIL) 10 MG tablet Take 1 (one) tablet by mouth once daily Active metoprolol tartrate IR (LOPRESSOR) 25 MG tablet Take 1 (one) tablet by mouth once daily Active mycophenolate (CELLCEPT) 500 MG tablet Take 500 mg by mouth once daily Active Dilt-XR 120 MG capsule Take 1 (one) capsule by mouth once daily 04/02/2022 Active carvedilol (Coreg) 25 MG tablet Take 1 (one) tablet by mouth 2 times daily with morning and evening meal 06/17/2023 Active doxycycline monohydrate 100 MG capsule 04/16/2023 Active HYDROcodone-acetami nophen ([place]) 5-325 MG tablet take 1 to 2 tablets by mouth every 4 hours if needed 06/25/2023 Active levoFLOXacin (Levaquin) 750 MG tablet 08/17/2023 Active mupirocin (Bactroban) 2 % ointment APPLY TOPICALLY TO THE AFFECTED AREA DAILY 08/20/2023 Active predniSONE (Deltasone) 10 MG tabletIndications:M yasthenia gravis (HCC) TAKE ONE TABLET BY MOUTH EVERY OTHER DAY, ALTERNATING WITH 1/2 TABLET EVERY OTHER DAY DIRECTED 30 tablet 5 09/11/2023 Active Active Problems Problem Noted Date Diagnosed Date History of DVT (deep vein thrombosis) 05/25/2023 Other thrombophilia 01/09/2023 Paroxysmal atrial fibrillation 12/25/2022 Pulmonary embolism 12/19/2021 Shortness of breath 10/11/2021 Hematoma of leg, left, initial encounter 022 Overview (10/08/2021): Added automatically from request for surgery [id number] Implantable cardioverter-def ibrillator (ICD) generator end of life 10/18/2020 Uncontrolled type 2 diabetes mellitus with hyper glycemia 07/05/2020 Essential hypertension 10/06/2019 Overview (10/08/2021): Last Assessment & Plan: Well controlled Ocular myasthenia gravis 10/26/2018 LBBB (left bundle branch block) 06/24/2018 Overview (10/08/2021): Last Assessment & Plan: Treated with PIPELINE TECHNICIAN. Not dependent Biventricular implantable ca rdioverter-defibrillator (ICD) in situ 05/23/2015 Overview (10/08/2021): Last Assessment & Plan: Check today shows normal function. Battery 6 months. Stable impedance excellent threshold. In sensing. No events. Pacing 96% bi V. No arrhythmias Dilated cardiomyopathy 05/23/2015 Overview (10/08/2021): Last Assessment & Plan: Continue lisinopril and Toprol. Class 1. Immunizations Name Administration Dates Next Due INFLUENZA VACCINE 12/16/2022,11/26/2021,12/19/19 19,01/21/2018 PNEUMOCOCCAL PPSV23 02/17/2020 PNEUMOCOCCAL PPV VACCINE 02/10/2019 Pneumococcal Pcv13 Conj 02/02/2019 Family History Relation Name Status Comments Father Mother Social History Tobacco Use Types Packs/Day Years Used Date Smoking Tobacco: Never Smokeless Tobacco: Never Tobacco Cessation:Counseling Given: Not Answered Alcohol Use Standard Drinks/Week Comments Yes 0 (1 standard drink = 0.6 oz pur e alcohol) Occasionally Sex and Gender Information Value Date Recorded Sex Assigned at Not on file Gender Identity Not on file Sexual Orientation Not on file Last Filed Vital Signs Vital Sign Reading Time Taken Comments Blood Pressure 118/74 09/14/2023 1:27 PM CDT Pulse 74 09/14/2023 1:27 PM CDT Temperature 36.3 C (97.3 F) 09/14/2023 1:27 PM CDT Respiratory Rate 14 11/09/2014 11:04 AM CDT Oxygen Saturation 97% 09/14/2023 1:27 PM CDT Inhaled Oxygen Concentration - - Weight 76.2 kg (168 lb) 09/14/2023 1:27 PM CDT Height 172.7 cm (5' 8 ) 09/14/2023 1:27 PM CDT Body Mass Index 25.54 09/14/2023 1:27 PM CDT Plan of Treatment Upcoming Encounters Date Type Department Care Team (Late st Contact Info) Description 09/13/2024 1:00 PM CDT Office Visit [facility] - Neurology [address] [place] [address], [place] [id number] Vern Love MD [address] [place] [address] [place] [address] Health Maintenance Due Date Last Done Comments MEDICARE AWV 12 MONTHS 1945 DTAP/TDAP/TD VACCINES (1 - Tdap) 10/06/1962 ZOSTER VACCINE (1 of 2) 10/06/1962 DIABETES-STATIN 1983 Respiratory Syncytial Virus (RSV) Vaccine Pt: or over 60 yrs (1 - 1-dose 75+ series) 10/06/2018 COVID-19 VACCINE (3 - Pfizer risk series) 06/06/2020 05/09/2020, 04/05/2020 DIABETES RETINOPATHY SCREENING 10/08/2021 DIABETES-FOOT EXAM WITH MONOFILAMENT 10/08/2021 DIABETES-SERUM CREATININE 02/06/20232021, 02/06/2022, 10/17/2021, Additional history exists DIABETES-HGB A1C 10/15/2023 04/16/2023, , 02/06/2022, Additional history exists DEPRESSION SCREENING 03/09/2024 DIABETES - URINE PROTEIN SCREENING 03/09/2024 02/07/2022 INFLUENZA VACCINE (Season Ended) 2024 12/16/2022, 11/26/2021, 12/18/2018, Additional history exists PNEUMOCOCCAL VACCINE 50+ Completed 020, 02/10/2019, 02/02/2019 HEPATITIS B VACCINE Aged Out No longe r eligible based on patient's age to complete this topic HIB VACCINE Aged Out No longer eligi ble based on patient's age to complete this topic HPV VACCINE Aged Out No longer eligi ble based on patient's age to complete this topic MENINGOCOCCAL (Group B) VACCINE SHARED DECISION-MAKING Aged Out No longer eligible based on patient's age to complete this topic MENINGOCOCCAL GROUPS A/C/Y/W VACCINE Aged Out No longer eligible based on patient's age to complete this topic Procedures Procedure Name Priority Date/Time Associated Diagnosis Comments COMPREHENSIVE METABOLIC PANEL Routine 04/05/2019 10:18 AM ROTARY DRILL OPERATOR HELPER Therapeutic drug monitoring HEMOGLOBIN A1C Routine 04/05/2019 10:18 AM ROTARY DRILL OPERATOR HELPER Hyperglycemia from Last 3 Months or Most Recently Relevant to Health Maintenance Results * (ABNORMAL) HEMOGLOBIN A1C (04/05/2019 10:18 AM ROTARY DRILL OPERATOR HELPER) Hemoglobin A1c 6.6(H) 4.4 - 6.3 % 04/05/2019 1:46 PM ROTARY DRILL OPERATOR HELPER [facility] Estimated Average Glucose 143 mg/dL 04/05/2019 1:46 PM [facility] Comment: HbA1c Interpretation: Treatment target values recommended by ADA and other clinical organizations should be used to evaluate metabolic control in patients. Treatment Target Values: Normal : < 5.7% Pre-diabetes: 5.7-6.4% Diabetes: Equal to or greater than 6.5% Reference: Japanese Diabetes Association Standards of Care in Diabetes -2014 In patients 70 years and older consider HbA1c target range of 7.0-7.5% Reference: Diabetes Mellitus in Older People: Position Statement on behalf of the International Association of Gerontology and Geriatrics (IAGG), the Diabetes Working Libertarian for Older People (EDWPOP), and the International Task Force of Experts in Diabetes. Gene Wilburn, et al. J Japanese Medical Directors Association. 2012 Test results diagnostic of diabetes should be repeated for confirmation. The Sebia Capillary 2 assay for the measurement of HbA1c is a National Glycohemoglobin Standardization Program (NGSP)certified method. Blood BLOOD SPECIMEN / Unknown Lab Venipuncture / Unknown 04/05/2019 10:18 AM ROTARY DRILL OPERATOR HELPER 04/05/2019 10:25 AM ROTARY DRILL OPERATOR HELPER Wild Sauceda MD LAB - CHEMISTRY ORD ERABLES [facility] [address] [phone] * (ABNORMAL) COMPREHENSIVE METABOLIC PANEL (04/05/2019 10:18 AM [facility]) BUN 14 7 - 26 mg/dL 04/05/2019 10:56 AM [facility] Creatinine 0.9 0.6 - 1.2 mg/dL 04/05/2019 10:56 AM [facility] Sodium 143 136 - 145 mmol/L 04/05/2019 10:56 AM [facility] Potassium 4.1 3.5 - 4.5 mmol/L 04/05/2019 10:56 AM [facility] Chloride 108(H) 98 - 107 mmol/L 04/05/2019 10:56 AM [facility] CO2 24 22 - 29 mmol/L 04/05/2019 10:56 AM [facility] Glucose 95 70 - 115 mg/dL 04/05/2019 10:56 AM [facility] Calcium 9.0 8.4 - 10.2 mg/dL 04/05/2019 10:56 AM [facility] Protein Total 6.8 6.0 - 8.3 g/dL 04/05/2019 10:56 AM [facility] Albumin 3.6 3.4 - 5.0 g/dL 04/05/2019 10:56 AM [facility] Bilirubin Total 0.6 0.2 - 1.2 mg/dL 04/05/2019 10:56 AM [facility] Alkaline Phosphatase 88 40 - 150 Units/L 04/05/2019 10:56 AM [facility] ALT 22 0 - 55 Units/L 04/05/2019 10:56 AM [facility] AST 25 5 - 34 Units/L 04/05/2019 10:56 AM [facility] Anion Gap 15 8 - 18 04/05/2019 10:56 AM [facility] BUN/Creatinine Ratio 16 7 - 23 04/05/2019 10:56 AM [facility] Osmolality Calculated 296 270 - 300 mOsm/kg 04/05/2019 10:56 AM [facility] Albumin/Globulin Ratio 1.1 1.1 - 2.3 04/05/2019 10:56 AM [facility] eGFR >60 >60 mL/min/1.7 3 m2 04/05/2019 10:56 AM [facility] Blood BLOOD SPECIMEN / Unknown Lab Venipuncture / Unknown 04/05/2019 10:18 AM ROTARY DRILL OPERATOR HELPER 04/05/2019 10:25 AM ROTARY DRILL OPERATOR HELPER Wild Sauceda MD LAB - CHEMISTRY ORD ERABLES [facility] [address] [phone] from Last 3 Months or Most Recently Relevant to Health Maintenance Care Teams Organizational Development Specialist Relationship Specialty Start Date End Date Rios Reyes MD [address] [facility] [address] [place] [address] PCP - General Family Medicine 09/08/23
--- OUTSIDE RECORDS SUMMARY | 2024-06-14 13:29 | XMS_ITS | Encounter Summary ---
Author Organization [facility] Care Team Providers Care Greens Cutter Name Role Phone No, Physician Primary Care Provider Rios Reyes MD Primary Care Provid er Abhi Stearns MD Unavailable [phone] Antoinette Howard RN Unavailable [phone] WhitlockPenny mckenzie [facility] Unavailable [phone] Encounter Details Date Type Department Care Team (Latest Contact Info) Description 12/04/2016 Orders Only [facility] CLINCONV ProviderElle MD [address] [place] [address] Social History Tobacco Use Types Packs/Day Years Used Date Smoking Tobacco: Never Assessed Sex and Gender Information Value Date Recorded Sex Assigned at Not on file 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 Historical Provider [facility] BOWER Final Result documented in this encounter Visit Diagnoses Not on filedocumented in this encounter Care Teams Greens Cutter Relationship Specialty Start Date End Date No, Physician PCP - General 06/16/18 07/03/20 Rios Reyes MD [address] [place] [address] PCP - General Family Medicine 07/04/20 Abhi Stearns MD [address] [place] [address] Honing Machine Operator Tool Cardiovascular Disease 11/09/20 Antoinette Howard, RN [address] [place] [address] Outreach Educator 10/18/21 11/13/21 Penny Whitlock RP [address] [place] [address] Pharmacist Pharmacy 10/18/21 10/29/21 documented as of this encounter
--- OUTSIDE RECORDS SUMMARY | 2024-06-14 13:29 | XMS_ITS | Encounter Summary ---
Author Organization [facility] Facility Care Team Providers Care Heater Helper Name Role Phone No, Physician Primary Care Provider Rios Reyes MD Primary Care Provid er Abhi Stearns MD Unavailable [phone] Antoinette Howard RN Unavailable [phone] WhitlockPenny mckenzie [facility] Unavailable [phone] Encounter Details Date Type Department Care Team (Latest Contact Info) Description 06/18/2017 Orders Only [facility] ProviderElle MD [address] [place] [id number] Social History Tobacco Use Types Packs/Day Years Used Date Smoking Tobacco: Never Assessed Sex and Gender Information Value Date Recorded Sex Assigned at Not on file Legal Sex Male 9:14 AM [employer] WORK[employer] Gender Identity Not on file Sexual Orientation Not on file documented as of this encounter Plan of Treatment Not on file documented as of this encounter Procedures Procedure Name Priority Date/Time Associated Diagnosis Comments CARDIOLOGY REPORT 06/18/2017 12: 00 AM CDT documented in this encounter Results * CARDIOLOGY REPORT (06/18/2017 12:00 AM CDT) Anatomical Region Laterality Modality Other Narrative 06/18/2017 12:00 AM CDT Ordered by an unspecified provider. Historical Provider [facility] Final Result documented in this encounter Visit Diagnoses Not on filedocumented in this encounter Care Teams Heater Helper Relationship Specialty Start Date End Date No, Physician PCP - General 06/16/18 07/03/20 Rios Reyes MD [address] [place] [address] PCP - General Family Medicine 07/04/20 Abhi Stearns MD [address] [place] [address] Legislative Director Cardiovascular Disease 11/09/20 Antoinette Howard, RN [address] [place] [address] Relief Operator 10/18/21 11/13/21 Penny Whitlock RP [address] [place] [address] Pharmacist Pharmacy 10/18/21 10/29/21 documented as of this encounter
--- OUTSIDE RECORDS SUMMARY | 2024-06-14 13:29 | XMS_ITS | Encounter Summary ---
Author Organization [facility] Healthcare Address [address] [place] [address] Care Team Providers Care Casualty Insurance Claim Adjuster Name Role Phone Rios Reyes MD Primary Care Provid er Abhi Stearns MD Unavailable [phone] Encounter Details Date Type Department Care Team (Late st Contact Info) Description 06/10/2024 Orders Only [facility] PreAdmission Testing [address] [place] [address] Pepper Collins RN Social History Tobacco Use Types Packs/Day Years Used Date Smoking Tobacco: Never Smokeless Tobacco: Never Alcohol Use Standard Drinks/Week Comments Yes 1 [...] often do you attend chur ch or jehovah's witness services? Never 10/18/2021 Do you belong to any clubs o r organizations such as mormon groups, unions, fraternal or athletic groups, or [...] place to sleep or slept in a usp (including now)? No 10/18/2021 PHQ-9 Answer Date Recorded PHQ-9 Total Score 0 01/04/2024 Sex and Gender Information Value Date Recorded Sex Assigned at Not on file Legal Sex Male 9:14 AM [employer] Gender Identity Not on file Sexual Orientation Not on file documented as of this encounter Plan of Treatment Not on file documented as of this encounter Visit Diagnoses Not on filedocumented in this encounter Care Teams Casualty Insurance Claim Adjuster Relationship Specialty Start Date End Date Rios Reyes MD [address] [place] [address] PCP - General Family Medicine 07/04/20 Abhi Stearns MD [address] [place] [address] Principal Consultant Cardiovascular Disease 11/09/20 documented as of this encounter
--- OUTSIDE RECORDS SUMMARY | 2024-06-14 13:29 | XMS_ITS | Clinical Summary ---
Author Organization [facility] Address Counts include 234 beds at the [facility] [place] [address] Care Team Providers Care Nanotechnology Engineering Technologist Name Role Phone Rios Reyes MD Primary Care Provider [phone] Allergies No known active allergies Medications mupirocin (BACTROBAN) 2 % ointment Apply topically daily. 22 g 1 4 Active lisinopril (PRINIVIL) 10 MG tablet Take 1 tablet (10 mg total) by mouth daily. Active predniSONE (DELTASONE) 10 mg tablet Take 1 tablet (10 mg total) by mouth daily. Alternating with 5 mg Active esomeprazole (NEXIUM) 20 MG capsule Take 1 capsule (20 mg total) by mouth every morning before breakfast. Active guaiFENesin ER (MUCINEX) 600 MG 12 hr tablet Take 1 tablet (600 mg total) by mouth 2 (two) times daily. 28 tablet 4 Active magnesium oxide (MAG-OX) 400 (240 Mg) MG tablet Take 1 tablet (400 mg total) by mouth 2 (two) times daily. 30 tablet 4 Active Additional Information Patient taking differently:400 mg OralDaily, Reported on 04/05/2024 albuterol sulfate HFA 108 (90 Base) MCG/ACT inhaler Inhale 2 puffs into the lungs every 4 (four) hours as needed for Wheezing or Shortness of breath. 6.7 g 4 Active carvedilol (COREG) 6.25 MG tablet Take 1 tablet (6.25 mg total) by mouth 2 (two) times daily. 60 tablet 4 Active spironolactone (ALDACTONE) 25 MG tablet Take 0.5 tablets (12.5 mg total) by mouth daily. 30 tablet 4 Active Dapagliflozin Propanediol (FARXIGA) 5 MG Tab Take 5 mg by mouth daily. 30 tablet 4 Active DILT-XR 120 MG 24 hr capsule Take 1 capsule (120 mg total) by mouth daily. 4 Active amiodarone (PACERONE) 200 MG tablet Take 1 tablet (200 mg total) by mouth daily. Active senna-docusate (SENOKOT-S) 8.6-50 MG tablet Take 1 tablet by mouth daily. 60 tablet 1 5 Active traMADol (ULTRAM) 50 MG tabletIndication s:Acute Pain < 7 Day Supply,postop Take 1 tablet (50 mg total) by mouth every 6 (six) hours as needed for Pain. Indications: Acute Pain < 7 Day Supply, postop 28 tablet 5 Active Active Problems Problem Noted Date Diagnosed Date Acute respiratory failure ([facility]) 01/08 Respiratory infection 01/30/2024 History of DVT (deep vein thrombosis) 05/25/2023 Other thrombophilia ([facility]) 01/09/2023 Paroxysmal atrial fibrillation ([facility]) 12/25/2022 Pulmonary embolism ([facility]) 12/19/2021 Shortness of breath 10/11/2021 Hematoma of leg, left, initial encounter 022 Overview (01/30/2024): Added automatically from request for surgery [id number] Implantable cardioverter-def ibrillator (ICD) generator end of life 10/18/2020 Uncontrolled type 2 diabetes mellitus with hyperglycemia ([facility]) 07/05/2020 Injury of lower extremity 07/05/2020 Essential hypertension 10/06/2019 Overview (01/30/2024): Last Assessment & Plan: Well controlled LBBB (left bundle branch block) 06/24/2018 Overview (01/30/2024): Last Assessment & Plan: Treated with PIPE FINISHING SUPERVISOR. 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 Class 1. Biventricular implantable ca rdioverter-defibrillator (ICD) in situ 05/23/2015 Overview (01/30/2024): Last Assessment & Plan: Check today shows normal function. Battery 6 months. Stable impedance excellent threshold. In sensing. No events. Pacing 96% bi V. No arrhythmias Resolved Problems Problem Noted Date Diagnosed Date Resolved Date Preoperative cardiovascular examination 10/09/2023 02/01/2024 Encounters Date Type Department Care Team Description 04/11/2024 7:41 AM BAKING FACTORY WORKER Anesthesia Event [facility] [place] [address] [place] [address] Marlyn Boles MD Jackson, Samantha Rae [facility] 04/11/2024 7:30 AM BAKING FACTORY WORKER - 04/11/2024 10:40 AM BAKING FACTORY WORKER Surgery [facility] [place] [address] [place] [address] Anthony Tellez MD LUMBAR 3-4, LUMBAR 4-5 LAMINECTOMY 04/11/2024 5:15 AM BAKING FACTORY WORKER - 04/11/2024 1:18 PM BAKING FACTORY WORKER Hospital Encounter [facility] [place] [address] Anthony Tellez MD Discharge Disposition: Home or Self Care (Routine Discharge) 04/11/2024 Travel 04/05/2024 3:33 PM BAKING FACTORY WORKER - 04/05/2024 4:24 PM BAKING FACTORY WORKER Hospital Encounter [facility] Pre-Admission Testing [place] [address] [place] [address] Anthony Tellez MD Discharge Disposition: Home or Self Care (Routine Discharge) 04/05/2024 Travel from Last 3 Months Social History Tobacco Use Types Packs/Day Years Used Date Smoking Tobacco: Never Passive Smoke Exposure: Never Smokeless Tobacco: Never Tobacco Cessation:Counseling Given: Not Answered Alcohol Use Standard Drinks/Week Comments Yes 0 (1 standard drink = 0.6 oz pur e alcohol) ocassional B1300 Health Literacy Answer Date Recor ded How often do you need to hav e someone help you when you read instructions, pamphlets, or other written material from your doctor or pharmacy? Sometimes 01/30/2024 [facility] Utilities Answer Date Recorded In the past 12 months has [facility] [employer] oil, or water [employer] threatened to shut off services in your home? No 01/30/2024 Humiliation, Afraid, Rape, and Kick questionnair e Answer Date Recorded Within the last year, have y ou been afraid of your partner or ex-partner? No 01/30/2024 Within the last year, have y ou been humiliated or emotionally abused in other ways by your partner or ex-partner? No Within the last year, have y ou been kicked, hit, slapped, or otherwise physically hurt by your partner or ex-partner? No 01/30/2024 Within the last year, have y ou been raped or forced to have any kind of sexual activity by your partner or ex-partner? No 01/30/2024 Social Connection and Isolat ion Panel [NHANES] Answer Date Recorded In a typical week, how many times do you talk on the phone with family, friends, or neighbors? More than three times a week 01/30/2024 How often do you get togethe r with friends or relatives? Three times a week 01/30/2024 How often do you attend chur ch or hindu services? Never 01/30/2024 Do you belong to any clubs o r organizations such as scientology groups, unions, fraternal or athletic groups, or school groups? No 01/30/2024 How often do you attend meet ings of the clubs or organizations you belong to? Never 01/30/2024 Are you , , di vorced, , never , or living with a partner? 01/30/2024 AUDIT-C Answer Date Recorded Q1: How often do you have a drink containing alc ohol? Monthly or less 01/30/2024 Q2: How many drinks containi ng alcohol do you have on a typical day when you are drinking? 1 or 2 01/30/2024 Q3: How often do you have si x or more drinks on one occasion? Never 01/30/2024 Overall Financial Resource Strain (CARDIA) Answe r Date Recorded How hard is it for you to pa y for the very basics like food, housing, medical care, and heating? Not hard at all 01/30/2024 [facility] Occupat ional Health - Occupational Stress Questionnaire Answer Date Recorded Do you feel stress - tense, restless, nervous, or anxious, or unable to sleep at night because your mind is troubled all the time - these days? Not at all 01/30/2024 Exercise Vital Sign Answer Date Recorde d On average, how many days pe r week do you engage in moderate to strenuous exercise (like a brisk walk)? 6 days 01/30/2024 On average, how many minutes do you engage in exercise at this level? 60 min 01/30/2024 Hunger Vital Sign Answer Date Recorded Within the past 12 months, y ou worried that your food would run out before you got the money to buy more. Never true 01/30/20 24 Within the past 12 months, t he food you bought just didn't last and you didn't have money to get more. Never true 01/30/2024 PRAPARE - Transportation Answer Date Re corded In the past 12 months, has l ack of transportation kept you from medical appointments or from getting medications? No 01/08 In the past 12 months, has l ack of transportation kept you from meetings, work, or from getting things needed for daily living? No 01/30/2024 Housing Stability Vital Sign Answer Vipul e Recorded In the last 12 months, was t here a time when you were not able to pay the mortgage or rent on time? No 01/30/2024 In the past 12 months, how m any times have you moved where you were living? 0 01/30/2024 At any time in the past [facility], were you homeless or living in a [facility] (including now)? No 01/30/2024 Sex and Gender Information Value Date Recorded Sex Assigned at Male 04/05/2024 3:27 PM BAKING FACTORY WORKER Legal Sex Male 8:42 AM CDT Gender Identity Not on file Sexual Orientation Not on file Last Filed Vital Signs Vital Sign Reading Time Taken Comments Blood Pressure 114/74 04/11/2024 1:00 PM BAKING FACTORY WORKER Pulse 68 04/11/2024 1:00 PM BAKING FACTORY WORKER Temperature 36.1 C (97 F) 04/11/2024 1:00 PM BAKING FACTORY WORKER Respiratory Rate 16 04/11/2024 1:00 PM BAKING FACTORY WORKER Oxygen Saturation 98% 04/11/2024 1:00 PM BAKING FACTORY WORKER Inhaled Oxygen Concentration - - Weight 70.3 kg (154 lb 15.7 oz) 04/11/2024 6:30 AM BAKING FACTORY WORKER Height 170.2 cm (5' 7 ) 04/11/2024 6:30 AM BAKING FACTORY WORKER Body Mass Index 24.27 04/11/2024 6:30 AM BAKING FACTORY WORKER Plan of Treatment Health Maintenance Due Date Last Done Comments Kidney Health Evaluation 1945 Lipid Panel 1943 Diabetes: Retinopathy Eye Exam 10/06/1961 DTaP, Tdap and Td Vaccines (1 - Tdap) 10/06/1962 Annual Medicare Wellness Visit 10/06/2008 RSV Immunization or 60+ Years (1 - 1-dose 75+ series) 10/06/2018 Zoster Vaccines (2 of 2) 2022 08/12/2022 Hemoglobin A1C 10/15/2023 04/16/2023, 12/09, 02/06/2022, Additional history exists COVID-19 Vaccine ( season) 2023 12/15/2022, 08/12/2022, 12/25/2021, Additional history exists Pneumococcal Vaccine: 65+ Years Completed 02/17/2020, 02/10/2019, 02/02/2019 Meningococcal B Vaccine Aged Out No l onger eligible based on patient's age to complete this topic Meningococcal Vaccine Aged Out No alexia sadi eligible based on patient's age to complete this topic RSV Immunizations Under 20 Months Aged Out No longer eligible based on patient's age to complete this topic Goals Goal Patient Goal Type Associated Problems Recent Progress Patient-Stated? Author Health - patient able to perform ADLs independently Lifestyle No Raymond Clarke, RN Medical Devices Implanted Type Area Film Cleaner Device Identifier Shelf Expiration Date Model / Serial / Lot Graft Duragen Matrix 1 X 1 - [id number] Implanted:Qty: 1 on 04/11/2024 by Anthony Tellez MD at [facility] Dura N/A: Spine Lumbar [employer] [id number] 11/06/2026 [id number] / / [id number] Duraseal 5ml - [id number] Implanted:Qty: 1 on 04/11/2024 by Anthony Tellez MD at [facility] Dura N/A: Spine Lumbar [employer] [id number] 09/05/2024 [id number] / / [id number] Icd-11/15/2020 Implanted:Qty: 1 on 11/15/2020 ICD Chest [employer] CARDIAC RHYTHM AND HEART FAILURE - DIV M [id number] / [id number] 5S / Description:DEVICE IS NOT MR CONDITIONAL (RV LEAD IS NOT MR CONDITIONAL) Ra Lead-05/23/2015 Implanted:Qty: 1 on 05/23/2015 Lead Implant Right: Atrium [employer] CARDIAC RHYTHM AND HEART FAILURE - DIV M [id number] / [id number] / Rv Lead-05/23/2015 Implanted:Qty: 1 on 05/23/2015 Lead Implant Right: Ventricle [employer] CARDIAC RHYTHM AND HEART FAILURE - DIV M [id number] / [id number] 4V / Description:LEAD IS NOT MR C ONDITIONAL Lv Lead-05/23/2015 Implanted:Qty: 1 on 05/23/2015 Lead Implant Left: Ventricle [employer] CARDIAC RHYTHM AND HEART FAILURE - DIV M [id number] / [id number] 3V / Tissue Surgiflo 8ml - [id number] Implanted:Qty: 2 on 04/11/2024 by Anthony Tellez MD at [facility] Sealant N/A: Spine Lumbar [employer] [id number] / / Procedures Procedure Name Priority Date/Time Associated Diagnosis Comments SURG XR LUMB SPINE 1V Routine 04/11/2024 10:31 AM BAKING FACTORY WORKER POCT GLUCOSE - STEARNS DOCKED DEVICE Routine 04/11/2024 10:21 AM BAKING FACTORY WORKER ART LINE PLACEMENT Routine 04/11/2024 7: 50 AM BAKING FACTORY WORKER LAMINEC/FACETECT/FOR SHARMA,LUMBAR 04/11/2024 7:40 AM BAKING FACTORY WORKER LUMBAR STENOSIS M48.061 Case Notes SCHED BY FAX 03/31/2024 [facility] PRETEST 04/05/2024 @ 1530 Special Needs NEEDS JONAKALENCHATO [facility]AN[facility] POCT GLUCOSE - STEARNS DOCKED DEVICE Routine 04/11/2024 6:51 AM BAKING FACTORY WORKER PARTIAL THROMBOPLASTIN TIME,PTT Routine 04/05/2024 3:41 PM BAKING FACTORY WORKER Lumbar stenosis PROTHROMBIN TIME, VENOUS Routine 04/05/2024 3:41 PM BAKING FACTORY WORKER Lumbar stenosis BASIC METABOLIC PANEL Routine 04/05/2024 3:41 PM BAKING FACTORY WORKER Lumbar stenosis CBC W/DIFF AUTOMATED Routine 04/05/2024 3:41 PM BAKING FACTORY WORKER Lumbar stenosis HEMOGLOBIN, GLYCOSYLATED Routine 04/16/2023 11:28 AM BAKING FACTORY WORKER 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 The report and documentation of this exam will reside in the patient's permanent medical record and in the attending physician's procedure note. Ordered By: ANTHONY TELLEZ Interpreted By: Alan Turner MD, 04/11/2024 11:41 AM Narrative 04/11/2024 11:41 AM BAKING FACTORY WORKER [facility] [address] [place], [place] [address] FLUOROSCOPY CONTROL ONLY Procedure Note Alan Turner MD - 04/11/2024 [facility] [address] [place], [place] [address] FLUOROSCOPY CONTROL ONLY Impression: No radiologic interpretation will be issued. The report and documentationof this exam will reside in the patient's permanent medical record and inthe attending physician's procedure note. Ordered By: ANTHONY TELLEZ Interpreted By: Alan Turner MD, 04/11/2024 11:41 AM us Anthony Tellez MD IMAGES ONLY Final Result * (ABNORMAL) POCT glucose (04/11/2024 10:21 AM BAKING FACTORY WORKER) Only the most recent of2 resultswithin the time period is included. GLUCOSE POC 157(H) 70 - 99 mg/dL 04/11/2024 10:23 AM BAKING FACTORY WORKER [facility] 04/11/2024 10:2 1 AM BAKING FACTORY WORKER us Anthony Tellez MD POCT ORDERABLES - DEVICE Fin al Result [facility] [address] [place] [address], [place] [phone] * ART LINE PLACEMENT (04/11/2024 7:50 AM BAKING FACTORY WORKER) Narrative Marlyn Boles MD - 04/11/2024 7:50 AM BAKING FACTORY WORKER Marlyn Boles MD 04/11/2024 8:20 AM Art Line Date/Time: 04/11/2024 7:50 AM Performed by: Marlyn Boles MD Authorized by: Marlyn Boles MD Patient Location: OR Placed Outside of This Facility?: No Size: 20 Orientation: Left Location: Radial Site Prep: Chlorhexadine Local Anesthetic: None Insertion Attempts: 1 Ultrasound-guided Placement: No Secure Method: Taped and skin barrier Patient Tolerance: Tolerated well Marlyn Boles MD [place] ANESTHESIA Final Res ult * PTT, PARTIAL THROMBOPLASTIN TIME (04/05/2024 3:41 PM BAKING FACTORY WORKER) PTT 30.3 25.1 - 36.5 SEC 04/05/2024 4:41 PM BAKING FACTORY WORKER [facility] 04/05/2024 3:41 PM BAKING FACTORY WORKER Anthony Tellez MD LABORATORY Final Result Performing Organization Address City/[facility] Co de Phone Number [facility] [address] [place] [address], [place] [phone] * (ABNORMAL) PROTIME/INR, VENOUS (04/05/2024 3:41 PM BAKING FACTORY WORKER) PROTIME 14.0(H) 10.2 - 12.9 SEC 04/05/2024 4:41 PM BAKING FACTORY WORKER [facility] INR 1.2 04/05/2024 4:41 PM BAKING FACTORY WORKER [facility] Comment: Recommended INR Therapeutic Goals: 2.0-3.0 Routine Therapy 2.5-3.5 Mechanical Prosthetic Valves (High Risk) 04/05/2024 3:41 PM BAKING FACTORY WORKER Anthony Tellez MD LABORATORY Final Result [facility] [address] [place] [address], [place] [phone] * (ABNORMAL) BASIC METABOLIC PANEL (04/05/2024 3:41 PM BAKING FACTORY WORKER) [facility] GLUCOSE 161(H) 70 - 99 MG/DL 04/05/2024 4:31 PM [facility] BUN 39(H) 7 - 18 MG/DL 04/05/2024 4:31 PM [facility] CREATININE S/P/B 1.19 0.7 - 1.3 MG/DL 04/05/2024 4:31 PM [facility] SODIUM S/P/B 136 136 - 145 MMOL/L 04/05/2024 4:31 PM [facility] POTASSIUM S/P/B 5.2(H) 3.5 - 5.1 MMOL/L 04/05/2024 4:31 PM [facility] CHLORIDE S/P/B 109 97 - 115 MMOL/L 04/05/2024 4:31 PM [facility] CO2 21.5 21 - 32 MMOL/L 04/05/2024 4:31 PM [facility] CALCIUM S/P/B 8.9 8.5 - 10.1 MG/DL 04/05/2024 4:31 PM [facility] ANION GAP 5.5 2 - 10 MMOL/L 04/05/2024 4:31 PM [facility] BUN CREATININE RATIO 32.8(H) 6 - 26 04/05/2024 4:31 PM [facility] GFR ESTIMATE 62(L) >90 ML/MIN/1.7 3 M2 04/05/2024 4:31 PM [facility] Comment: NOTE: eGFR is not calculated for patients <18 years of age or gender unknown. This is an estimated GFR calculation using the new CKD EPI creatinine equation without race and so does not require a correction factor for race. This estimated GFR should not be used for calculating drug doses. 04/05/2024 3:41 PM BAKING FACTORY WORKER Anthony Tellez MD LABORATORY Final Result [facility] [address] [place] [address], * (ABNORMAL) CBC W/DIFF AUTOMATED (04/05/2024 3:41 PM BAKING FACTORY WORKER) WBC 9.50 4.5 - 11.0 x10'3/uL 04/05/2024 4:01 PM [facility] RBC 3.55(L) 4.70 - 6.10 x10'6/uL 04/05/2024 4:01 PM [facility] HGB 11.7(L) 14.0 - 18.0 G/DL 04/05/2024 4:01 PM [facility] HCT 36.9(L) 43.0 - 54.0 % 04/05/2024 4:01 PM [facility] MCV 103.9(H) 80.0 - 94.0 FL 04/05/2024 4:01 PM [facility] MCH 33.0(H) 27.0 - 31.0 PG 04/05/2024 4:01 PM [facility] MCHC 31.7(L) 32.0 - 36.0 G/DL 04/05/2024 4:01 PM [facility] RDW 13.9 11.5 - 14.5 % 04/05/2024 4:01 PM [facility] PLT 243 130 - 400 x10'3/uL 04/05/2024 4:01 PM [facility] MPV 9.1(L) 9.3 - 12.2 FL 04/05/2024 4:01 PM [facility] DIFFERENTIAL TYPE AUTOMATED DIFFERENTIAL 04/05/2024 4:01 PM [facility] NEUTROPHILS % 83.1 % 04/05/2024 4:01 PM [facility] LYMPHOCYTES % 8.4 % 04/05/2024 4:01 PM [facility] MONOCYTES % 5.6 % 04/05/2024 4:01 PM [facility] EOSINOPHILS 0.1 % 04/05/2024 4:01 PM [facility] BASOPHILS 0.6 % 04/05/2024 4:01 PM [facility] IMMATURE GRANS % 2.2 % 04/05/19 4:01 PM [facility] ABS. NEUTROPHILS 7.89(H) 1.80 - 7.70 x10'3/uL 04/05/2024 4:01 PM [facility] ABS. LYMPHOCYTES 0.80(L) 1.00 - 4.80 x10'3/uL 04/05/2024 4:01 PM [facility] ABS. MONOCYTES 0.53 0.30 - 0.82 x10'3/uL 04/05/2024 4:01 PM [facility] ABS. EOSINOPHILS 0.01(L) 0.04 - 0.54 x10'3/uL 04/05/2024 4:01 PM [facility] ABS. BASOPHILS 0.06 0.01 - 0.08 x10'3/uL 04/05/2024 4:01 PM [facility] ABS. IMMATURE GRANULOCYTES 0.21 0.00 - 0.49 x10'3/uL 04/05/2024 4:01 PM [facility] 04/05/2024 3:41 PM BAKING FACTORY WORKER Anthony Tellez MD LABORATORY Final Result Performing Organization Address [facility] Co de Phone Number [facility] [address] [place] [address], [place] [phone] * (ABNORMAL) HEMOGLOBIN, GLYCOSYLATED (04/16/2023 11:28 AM BAKING FACTORY WORKER) HGB A1C 7.2(H) <5.7 % 04/16/2023 1:21 PM BAKING FACTORY WORKER [facility] Comment: ADA GUIDELINES 2010 5.7 TO 6.4% INCREASED RISK OF DIABETES > OR = 6.5% CONSISTENT WITH DIABETES ESTIMATED AVG GLUCOSE 160 mg/dL 04/16/2023 1:21 PM BAKING FACTORY WORKER [facility] 04/16/2023 11:2 8 AM BAKING FACTORY WORKER Jaja Keyes NP LABORATORY Final Res ult Performing Organization Address City/[facility]/ZIP Co de Phone Number [facility] [address] [place] [address], [place] [phone] from Last 3 Months or Most Recently Relevant to Health Maintenance Insurance MEDICARE [facility] Advance Directives * DNR (Latest Code Status on File) Date Activated Date Inactivated Comments 01/30/2024 8:51 PM 02/03/2024 3:21 PM Care Teams Nanotechnology Engineering Technologist Relationship Specialty Start Date End Date Rios Reyes MD [address] [place] [address] PCP - General FAMILY PRACTICE 04/16/23
--- OUTSIDE RECORDS SUMMARY | 2024-06-14 13:29 | XMS_ITS | Encounter Summary ---
Author Organization [facility] Care Team Providers Care Swing Frame Grinder Operator Name Role Phone No, Physician Primary Care Provider Rios Reyes MD Primary Care Provid er Abhi Stearns MD Unavailable [phone] Antoinette Howard RN Unavailable [phone] WhitlockPenny mckenzie [facility] Unavailable [phone] Encounter Details Date Type Department Care Team (Latest Contact Info) Description 05/22/2016 Orders Only [facility] CLINCONV ProviderElle MD [address] [place] [id number] Social History Tobacco Use Types Packs/Day Years Used Date Smoking Tobacco: Never Assessed Sex and Gender Information Value Date Recorded Sex Assigned at Not on file Legal Sex Male 9:14 AM LURER Gender Identity Not on file Sexual Orientation Not on file documented as of this encounter Plan of Treatment Not on file documented as of this encounter Procedures Procedure Name Priority Date/Time Associated Diagnosis Comments CARDIOLOGY REPORT 05/26/2016 12: 00 AM CDT documented in this encounter Results * CARDIOLOGY REPORT (05/26/2016 12:00 AM CDT) Anatomical Region Laterality Modality Other Narrative 05/26/2016 12:00 AM CDT Ordered by an unspecified provider. Historical Provider [facility] Final Result documented in this encounter Visit Diagnoses Not on filedocumented in this encounter Care Teams Swing Frame Grinder Operator Relationship Specialty Start Date End Date No, Physician PCP - General 06/16/18 07/03/20 Rios Reyes MD [address] [place] [address] PCP - General Family Medicine 07/04/20 Abhi Stearns MD [address] [place] [address] Capacity Planner Cardiovascular Disease 11/09/20 Antoinette Howard, RN [address] [place] [address] Yarding Supervisor 10/18/21 11/13/21 Penny Whitlock RP [address] [place] [address] Pharmacist Pharmacy 10/18/21 10/29/21 documented as of this encounter
--- OUTSIDE RECORDS SUMMARY | 2024-06-14 13:29 | XMS_ITS | Encounter Summary ---
Author Organization [facility] Facility Care Team Providers Care Diesel Plant Operator Name Role Phone No, Physician Primary Care Provider [phone] Rios Reyes MD Primary Care Provid er Abhi Stearns MD Unavailable [phone] Antoinette Howard RN Unavailable [phone] WhitlockPenny mckenzie [facility] Unavailable [phone] Encounter Details Date Type Department Care Team (Latest Contact Info) Description 03/26/2018 Orders Only [facility] CLINCONV ProviderElle MD [address] [place] [address] Social History Tobacco Use Types Packs/Day Years Used Date Smoking Tobacco: Never Assessed Sex and Gender Information Value Date Recorded Sex Assigned at Not on file Legal Sex Male 9:14 AM VIDEO GAME ENGINEER Gender Identity Not on file Sexual Orientation Not on file documented as of this encounter Plan of Treatment Not on file documented as of this encounter Procedures Procedure Name Priority Date/Time Associated Diagnosis Comments CARDIOLOGY REPORT 03/26/2018 12: 00 AM VIDEO GAME ENGINEER documented in this encounter Results * CARDIOLOGY REPORT (03/26/2018 12:00 AM VIDEO GAME ENGINEER) Anatomical Region Laterality Modality Other Narrative 03/26/2018 12:00 AM VIDEO GAME ENGINEER Ordered by an unspecified provider. Historical Provider [facility] Final Result documented in this encounter Visit Diagnoses Not on filedocumented in this encounter Care Teams Diesel Plant Operator Relationship Specialty Start Date End Date No, Physician PCP - General 06/16/18 07/03/20 Rios Reyes MD [address] [place] [address] PCP - General Family Medicine 07/04/20 Abhi Stearns MD [address] [address] Stock Plan Administrator Cardiovascular Disease 11/09/20 Antoinette Howard, RN [address] [place] [address] Facilities Maintenance Manager 10/18/21 11/13/21 Penny Whitlock [facility] [address] [place] [address] Pharmacist Pharmacy 10/18/21 10/29/21 documented as of this encounter
--- OUTSIDE RECORDS SUMMARY | 2024-06-14 13:29 | XMS_ITS | Encounter Summary ---
Author Organization [facility] Facility Care Team Providers Care Director Of Residence Life Name Role Phone No, Physician Primary Care Provider [phone] Rios Reyes MD Primary Care Provid er Abhi Stearns MD Unavailable [phone] nAtoinette Howard RN Unavailable [phone] WhitlockPenny mckenzie [facility] Unavailable [phone] Encounter Details Date Type Department Care Team (Latest Contact Info) Description 09/17/2017 Orders Only [facility] CLINCONV ProviderElle MD [address] [place] [address] Social History Tobacco Use Types Packs/Day Years Used Date Smoking Tobacco: Never Assessed Sex and Gender Information Value Date Recorded Sex Assigned at Not on file Legal Sex Male 9:14 AM KEYBOARDING CLERK Gender Identity Not on file Sexual Orientation Not on file documented as of this encounter Plan of Treatment Not on file documented as of this encounter Procedures Procedure Name Priority Date/Time Associated Diagnosis Comments CARDIOLOGY REPORT 09/17/2017 12: 00 AM CDT documented in this encounter Results * CARDIOLOGY REPORT (09/17/2017 12:00 AM CDT) Anatomical Region Laterality Modality Other Narrative 09/17/2017 12:00 AM CDT Ordered by an unspecified provider. Historical Provider [facility] Final Result documented in this encounter Visit Diagnoses Not on filedocumented in this encounter Care Teams Director Of Residence Life Relationship Specialty Start Date End Date No, Physician PCP - General 06/16/18 07/03/20 Rios Reyes MD [address] [place] [address] PCP - General Family Medicine 07/04/20 Abhi Stearns MD [address] [place] [address] Wooden Frame Builder Cardiovascular Disease 11/09/20 Antoinette Howard, RN [address] [place] [address] River Tester 10/18/21 11/13/21 Penny Whitlock RP [address] [place] [address] Pharmacist Pharmacy 10/18/21 10/29/21 documented as of this encounter
--- OUTSIDE RECORDS SUMMARY | 2024-06-14 13:29 | XMS_ITS | Encounter Summary ---
Author Organization [facility] Facility Care Team Providers Care Cad Designer Name Role Phone No, Physician Primary Care Provider Rios Reyes MD Primary Care Provid er Abhi Stearns MD Unavailable [phone] Antoinette Howard RN Unavailable [phone] WhitlockPenny mckenzie [facility] Unavailable [phone] Encounter Details Date Type Department Care Team (Latest Contact Info) Description 12/24/2017 Orders Only [facility] CLINCONV ProviderElle MD [address] [place] [address] Social History Tobacco Use Types Packs/Day Years Used Date Smoking Tobacco: Never Assessed Sex and Gender Information Value Date Recorded Sex Assigned at Not on file Legal Sex Male 9:14 AM EMBEDDED PROCESSOR Gender Identity Not on file Sexual Orientation Not on file documented as of this encounter Plan of Treatment Not on file documented as of this encounter Procedures Procedure Name Priority Date/Time Associated Diagnosis Comments CARDIOLOGY REPORT 12/24/2017 12: 00 AM CDT documented in this encounter Results * CARDIOLOGY REPORT (12/24/2017 12:00 AM CDT) Anatomical Region Laterality Modality Other Narrative 12/24/2017 12:00 AM CDT Ordered by an unspecified provider. Historical Provider [facility] Final Result documented in this encounter Visit Diagnoses Not on filedocumented in this encounter Care Teams Cad Designer Relationship Specialty Start Date End Date No, Physician PCP - General 06/16/18 07/03/20 Rios Reyes MD [address] [place] [address] PCP - General Family Medicine 07/04/20 Abhi Stearns MD [address] [address] [place] [address] Manager Of Internal Audit Cardiovascular Disease 11/09/20 Antoinette Howard, RN [address] [place] [address] Dry Curer 10/18/21 11/13/21 Penny Whitlock RP [address] [place] [address] Pharmacist Pharmacy 10/18/21 10/29/21 documented as of this encounter
--- OUTSIDE RECORDS SUMMARY | 2024-06-14 13:29 | XMS_ITS ---
Author Organization [facility] [place] Address [address] [place] [address] Care Team Providers Care Senior Graduate Advisor Name Role Phone Antonio Malagon Unavailable [phone] REASON FOR VISIT follow-up after trigger point FARHANA, MOO- CHECKED Encounters Encounter Location Date Provider Diagnosis [facility] [address] [place] [address] 01/28/2024 Antonio Malagon PLAN OF TREATMENT No Information Progress Notes * Silviano VILLADOB:1945 (78 yo M)Acc No.[id number]:01/28/2024 Progress Notes Patient: Silviano VILLA Provider: Antonio Malagon MD :1945 Age:78 Y Sex:Male Date:01/28/2024 Address:[address] [place], [place] [id number] Subjective: * Chief Complaints: * 1. follow-up after trigger point FARHANA, MOO- CHECKED. * Medical History: Objective: Assessment: Plan: * Treatment: * Images: * Sign off status: Pending * Provider: Antonio Malagon MD Date: 01/28/2024
--- OUTSIDE RECORDS SUMMARY | 2024-06-14 13:29 | XMS_ITS | Referral Summary ---
Author Organization [facility] Address [address] [place] [address] Care Team Providers Care Signal Maintainer Helper Name Role Phone Rios Reyes MD Primary Care Provid er Abhi Stearns MD Unavailable [phone] Encounters Date Type Department Care Team Description 06/10/2024 Orders Only [facility] PreAdmission Testing [address] [place], [place] [phone] Pepper Collins RN 06/09/2024 10:15 AM CDT Office Visit [facility] Orthopedics and Sports Medicine [address] [place] [phone] Wilmar Samayoa DO Traumatic complete tear of left rotator cuff, initial encounter (Primary Dx); Primary osteoarthritis of left shoulder 06/07/2024 11:30 AM CDT Ancillary Procedure [facility] [address] [facility] [address] [place] [phone] LBBB (left bundle branch block); Paroxysmal atrial fibrillation (HCC) 05/27/2024 9:30 AM CDT Clinical Support [facility] Cardiology [address] [phone] Essential hypertension (Primary Dx) 05/24/2024 Orders Only [facility] [address] [facility] [address] [place] [phone] Laura Mckoy NP LBBB (left bundle branch block) (Primary Dx); Paroxysmal atrial fibrillation (HCC) 05/23/2024 Telephone [facility] [address] [place] [phone] Laura Mckoy NP 05/23/2024 3:00 PM CDT Office Visit [facility] [address] [place] [phone] Laura Mckoy NP Cardiac resynchronization therapy defibrillator (JAVA MOBILE DEVELOPER-D) in place (Primary Dx); LBBB (left bundle branch block); Dilated cardiomyopathy (HCC); Paroxysmal atrial fibrillation (HCC); Anticoagulation management encounter 05/23/2024 2:45 PM CDT Ancillary Procedure [facility] [address] [place] [phone] Automatic implantable cardiac defibrillator in situ (Primary Dx); Biventricular implantable cardioverter-defibrilla tor (ICD) in situ; LBBB (left bundle branch block) 05/17/2024 Results Follow-Up [facility] Cardiology [address] [phone] Shun Waters RN Hyperkalemia (Primary Dx) 05/16/2024 10:45 AM CDT Lab [facility] Building [address] [address] LBBB (left bundle branch block); Cardiac resynchronization therapy defibrillator (JAVA MOBILE DEVELOPER-D) in place; Dilated cardiomyopathy (HCC); Essential hypertension; Paroxysmal atrial fibrillation (HCC); Biventricular implantable cardioverter-defibrilla tor (ICD) in situ; Chronic pulmonary embolism, unspecified pulmonary embolism type, unspecified whether acute cor pulmonale present (HCC); History of DVT (deep vein thrombosis); Heart failure with reduced ejection fraction (HCC) 05/04/2024 Orders Only [facility] [address] [place] [address] [place] [phone] Laura Mckoy NP Biventricular implantable cardioverter-defibrilla tor (ICD) in situ (Primary Dx); LBBB (left bundle branch block) 05/02/2024 Telephone [facility] [address] [phone] Laura Mckoy NP Scheduling Appointments 04/29/2024 9:45 AM NON LINEAR EDITOR Office Visit [facility] Cardiology [address] [place] [phone] Kevin Robb MD LBBB (left bundle branch block) (Primary Dx); Cardiac resynchronization therapy defibrillator (JAVA MOBILE DEVELOPER-D) in place; Dilated cardiomyopathy (HCC); Essential hypertension; Paroxysmal atrial fibrillation (HCC); Biventricular implantable cardioverter-defibrilla tor (ICD) in situ; Chronic pulmonary embolism, unspecified pulmonary embolism type, unspecified whether acute cor pulmonale present (HCC); History of DVT (deep vein thrombosis); Heart failure with reduced ejection fraction (HCC) 04/01/2024 9:15 AM NON LINEAR EDITOR Ancillary Procedure [facility] Cardiology [address] [place] [phone] Cardiac resynchronization therapy defibrillator (JAVA MOBILE DEVELOPER-D) in place; LBBB (left bundle branch block); Dilated cardiomyopathy (HCC); Paroxysmal atrial fibrillation (HCC) 03/30/2024 8:45 AM NON LINEAR EDITOR Office Visit [facility] [address] [phone] Rios Reyes MD Chronic bilateral low back [...] tor (ICD) in situ; 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[facility]); Overweight; Preoperative clearance 03/22/2024 Telephone [facility] Cardiology [address] [place] [phone] Shiela Randolph NP 03/22/2024 2:00 PM NON LINEAR EDITOR Office Visit [facility] Cardiology [address] [facility] [address] [place] [address] Shiela Randolph, VAUGHN LBBB (left bundle branch block) (Primary Dx); Essential hypertension; Dilated cardiomyopathy (HCC); Paroxysmal atrial fibrillation (HCC); History of DVT (deep vein thrombosis); Preoperative cardiovascular examination 03/17/2024 9:15 AM NON LINEAR EDITOR Therapy [facility] Bldg 1 OP Physical Therapy [address] [facility] [address] [place] [address] Lyndon Sandoval PTA Traumatic complete tear of left rotator cuff, initial encounter (Primary Dx) from Last 3 Months Allergies No known active allergies Medications rmehzoya-iuy-VN-lyc open-lutein 0.4-2-250 mg-mg-mcg tablet Take 1 tablet [...] (03/12/2021): Added automatically from request for surgery [id number] Injury of lower extremity 07/05/2020 Uncontrolled type 2 diabetes mellitus with hyper glycemia 07/05/2020 Essential hypertension 10/06/2019 Assessment & Plan (07/21/2022 1:22 PM CDT): Longstanding see hypertension patient is tolerating medications well blood pressure under good control patient to continue present medication and salt restriction Assessment & Plan (04/12/2020 1:52 PM NON LINEAR EDITOR): Well controlled Assessment & Plan (10/06/2019 2:24 PM CDT): Repeat 140/80. Patient states blood pressures run low which showed home. Generally systolic 120 in below LBBB (left bundle branch block) 06/24/2018 Assessment & Plan (04/12/2020 1:52 PM NON LINEAR EDITOR): Treated with JAVA MOBILE DEVELOPER. Not dependent Assessment & Plan (10/06/2019 2:24 PM CDT): Treated with JAVA MOBILE DEVELOPER Assessment & Plan (06/24/2018 1:44 PM CDT): JAVA MOBILE DEVELOPER Cardiac resynchronization th erapy defibrillator (JAVA MOBILE DEVELOPER-D) in place 06/24/2018 Assessment & Plan (07/21/2022 1:21 PM CDT): Patient has a dilated cardiomyopathy with left bundle-branch block received a biventricular pacemaker patient has markedly improved after that and patient is a offering no complaint device is functioning is being monitored Assessment & Plan (04/12/2020 1:45 PM NON LINEAR EDITOR): Check today shows normal function. Battery 6 [...] diet Assessment & Plan (04/12/2020 1:52 PM NON LINEAR EDITOR): Continue lisinopril and Toprol. Class 1. Assessment & Plan (10/06/2019 2:23 PM CDT): Resolved with JAVA MOBILE DEVELOPER. Continue lisinopril and Toprol Assessment & Plan (06/24/2018 2:00 PM CDT): No CHF. 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 Battery 6 months. Stable impedance excellent threshold. In sensing. No events. Pacing 96% bi V. No arrhythmias Immunizations Immunization Administration Dates Next Due Influenza, Quadrivalent, Hig h Dose, Preservative Free, Intrr 12/04/2020 Influenza, Unspecified 02/02/2024(Deferr ed: Patient Refused),01/09/2023(Deferred: Patient Refused),12/16/2022,11/26/2021, 019,01/21/2018 Pfizer SARS-CoV-2 Monovalent Vaccination (12+ Yrs) PURPLE 05/09/2020,04/05/2020 Pneumococcal Conjugate PCV 13 02/02/2019 Pneumococcal Polysaccharide PPV23 02/17/2020,07/2018 Social History Tobacco Use Types Packs/Day Years [...] often do you attend chur ch or hoahaoism services? Never 10/18/2021 Do you belong to any clubs o r organizations such as anabaptist groups, unions, fraternal or athletic groups, or [...] place to sleep or slept in a care home (including now)? No 10/18/2021 PHQ-9 Answer Date Recorded PHQ-9 Total Score 0 01/04/2024 Sex and Gender Information Value Date Recorded Sex Assigned at Not on file Legal Sex Male 9:14 AM NON LINEAR EDITOR Gender Identity Not on file Sexual Orientation Not on file Last Filed Vital Signs Vital Sign Reading Time Taken Comments Blood Pressure 110/60 05/27/2024 9:18 AM CDT Pulse 64 05/23/2024 3:37 PM CDT Temperature 36.7 C (98 F) 03/30/2024 8:31 AM NON LINEAR EDITOR Respiratory Rate 18 03/30/2024 8:31 AM NON LINEAR EDITOR Oxygen Saturation 98% 04/29/2024 9:52 AM NON LINEAR EDITOR Inhaled Oxygen Concentration - - Weight 68.9 kg (152 lb) 05/23/2024 3:37 PM CDT Height 165.1 cm (5' 5 ) 05/23/2024 3:37 PM CDT Body Mass Index 25.29 05/23/2024 3:37 PM CDT Plan of Treatment Not on file Medical Devices Implanted Type Area Creasing Machine Operator Device Identifier Shelf Expiration Date Model / Serial / Lot Med[employer]onic Inc [id number] Defib Cardiac [place] Hf 2 Chamber Df-1 Pin Plug Is4 - [id number] - [id number] Implanted:Qty: 1 on 11/15/2020 by Marcial rBumfield MD at [facility] ICD Left: Chest Med[employer]onic Inc 08/03/2021 [id number] / [id number] / Medtronic Ra Lead [id number]/23/19 16 Implanted:05/22 (Quantity not on file) Lead Heart Medtronic Cardiac Rhythm Mgmt 5076-45 / [id number] / Medtronic Rv Lead [id number]/23/19 16 Implanted:05/22 (Quantity not on file) Lead Heart Medtronic Cardiac Rhythm Mgmt 6944-58 / [id number] / Medtronic Lv Lead [id number]/23/19 16 Implanted:05/22 (Quantity not on file) Lead Heart Medtronic Cardiac Rhythm Mgmt 4598-88 / [id number] / Procedures Procedure Name Priority Date/Time Associated Diagnosis Comments DEVICE CHECK - IN OFFICE Routine 06/07/2024 11:05 AM CDT LBBB (left bundle branch block) Paroxysmal atrial fibrillation (HCC) ECG 12-LEAD Routine 05/23/2024 3:36 PM CDT Cardiac resynchronization therapy defibrillator (JAVA MOBILE DEVELOPER-D) in place DEVICE CHECK - IN OFFICE Routine 05/23/2024 2:01 PM CDT Biventricular implantable cardioverter-defibrillat or (ICD) in situ LBBB (left bundle branch block) EGFR Routine 05/16/2024 10:50 AM CDT LBBB (left bundle branch block) Cardiac resynchronization therapy defibrillator (JAVA MOBILE DEVELOPER-D) in place Dilated cardiomyopathy (HCC) Essential hypertension Paroxysmal atrial fibrillation (HCC) Biventricular implantable cardioverter-defibrillat or (ICD) in situ Chronic pulmonary embolism, unspecified pulmonary embolism type, unspecified whether acute cor pulmonale present (HCC) History of DVT (deep vein thrombosis) Heart failure with reduced ejection fraction (HCC) MAGNESIUM Routine 05/16/2024 10:50 AM CDT LBBB (left bundle branch block) Cardiac resynchronization therapy defibrillator (JAVA MOBILE DEVELOPER-D) in place Dilated cardiomyopathy (HCC) Essential hypertension Paroxysmal atrial fibrillation (HCC) Biventricular implantable cardioverter-defibrillat or (ICD) in situ Chronic pulmonary embolism, unspecified pulmonary embolism type, unspecified whether acute cor pulmonale present (HCC) History of DVT (deep vein thrombosis) Heart failure with reduced ejection fraction (HCC) BASIC METABOLIC PANEL Routine 05/16/2024 10:50 AM CDT LBBB (left bundle branch block) Cardiac resynchronization therapy defibrillator (JAVA MOBILE DEVELOPER-D) in place Dilated cardiomyopathy (HCC) Essential hypertension Paroxysmal atrial fibrillation (HCC) Biventricular implantable cardioverter-defibrillat or (ICD) in situ Chronic pulmonary embolism, unspecified pulmonary embolism type, unspecified whether acute cor pulmonale present (HCC) History of DVT (deep vein thrombosis) Heart failure with reduced ejection fraction (HCC) ECG 12-LEAD Routine 03/22/2024 1:58 PM NON LINEAR EDITOR LBBB (left bundle branch block) HM DIABETES [...] 4.6 seconds. Episodes last 90 days/Comments: AF Seltzer 0 %,longest duration 0. There were no [...] was last reviewed 2021. Testing performed by: [address] [address] Blood 05/16/2024 10:5 0 AM CDT 05/16/2024 12:27 PM CDT Kevin Robb MD LAB BLOOD ORDERABLES Final Result Performing Organization Address [facility] de Phone Number [id number] [place] [address] * (ABNORMAL) Magnesium (05/16/2024 10:50 AM CDT) [facility] Magnesium 2.6(H) 1.4 - 2.5 mg/dL Comment:Testing performed by : [address] [address] Blood 05/16/2024 10:5 0 AM CDT 05/16/2024 12:27 PM CDT Kevin Robb MD LAB BLOOD ORDERABLES Final Result Performing Organization Address [facility] de Phone Number [address] [address] * (ABNORMAL) Basic metabolic panel (05/16/2024 10:50 AM CDT) [facility] Sodium 140 135 - 145 mmol/L Comment:Testing performed by : [address] [address] Potassium, pl 5.4(H) 3.3 - 4.9 mmol/L [facility] Comment:Testing performed by : [address] [address] Chloride 107 97 - 110 mmol/L [place] Comment:Testing performed by : [address] [address] CO2 24 22 - 32 mmol/L [place] Comment:Testing performed by : [address] [place] [address] Anion gap 9 2 - 15 mmol/L [facility] Comment:Testing performed by : [address] [address] BUN 32(H) 6 - 25 mg/dL [place] Comment:Testing performed by : [address] [address] Creatinine 1.64(H) 0.80 - 1.30 mg/dL [place] Comment:Testing performed by : [address] [address] Glucose 144 70 - 199 mg/dL [facility] Comment: Interpretive Data Fasting glucose >/= 126 [...] classification and Diagnosis of Diabetes Diabetes Care 2021; 46: S19-S40. Current interpretive data was last revised 2022. Testing performed by: [address] [address] Calcium 9.1 8.5 - 10.3 mg/dL [facility] Comment:Testing performed by : [address] [address] Blood 05/16/2024 10:5 0 AM CDT 05/16/2024 12:27 PM CDT us Kevin Robb MD LAB BLOOD ORDERABLES Final Result [facility] [address] [facility] Department [place] [address] * ECG 12 lead (03/22/2024 1:58 PM NON LINEAR EDITOR) us Shiela Randolph DESK REPORTER ECG ORDERABLES Final Resul t * HM DIABETES EYE EXAM (11/24/2023) SCRIBED HM DIABETIC DILATED EYE EXAM Normal us Historical [...] last revised on 2017. Testing performed by: [address] [address] Triglycerides 116 <=149 mg/dL [place] Comment: Interpretive [...] last revised on 2017. Testing performed by: [address] [address] HDL 75 >=40 mg/dL [place] Comment: Interpretive [...] last revised on 2017. Testing performed by: [address] [address] LDL, calculated 96 <=129 mg/dL [facility] Comment: [...] last revised on 2017. Testing performed by: [address] [address] Non-HDL Cholesterol 119 mg/dL [facility] Comment: Interpretive [...] last revised on 2017. Testing performed by: [address] [address] Chol/HDL ratio 3 [place] Comment:Testing performed by : [address] [address] Blood 10/02/2023 11:1 8 AM CDT 10/02/2023 1:49 PM CDT Kevin Robb MD LAB BLOOD ORDERABLES Final Result [facility] [address] [facility] Department [place] [address] * Albumin Creatinine Ratio, Urine (01/06/2023 2:00 PM CDT) Albumin Ur <12.0 mg/L [facility] Comment: Interpretive Data No reference range established. Current interpretive data was last revised 2018. Testing performed by: [address] [address] Creatinine Ur 65.1 mg/dL [facility] Comment: Interpretive Data No reference range established. Current interpretive data was last revised 2018. Testing performed by: [address] [address] Albumin Creatinine Ratio, Ur <18 1 - 29 mg/g [facility] Comment:Testing performed by : [address] [address] Urine 01/06/2023 2:00 PM CDT 01/06/2023 5:41 PM CDT Rios Reyes MD LAB URINE ORDERABLES Final Result Performing Organization Address [facility]/State/[facility] Co de Phone Number [facility] [address] [facility] Department [place] [address] * (ABNORMAL) Hemoglobin A1c (01/05/2023 8:07 AM CDT) Hgb A1C 7.2(H) 4.0 - 5.6 % [facility] Comment:Testing performed by : [address] [address] Estimated Average Glucose 160 mg/dL [place] Comment: The ADA recommends reporting an estimated Average Glucose (eAG) with all Hemoglobin A1c results using the equation derived from a study of 507 normal and diabetic adults. Minority populations were underrepresented and children were not included. (Diabetes Care 31:2024-8985, 2008). The eAG is not equivalent to a fasting glucose. Testing performed by: [address] [address] Blood 01/05/2023 8:07 AM CDT 01/05/2023 10:12 AM CDT Rios Reyes MD LAB BLOOD ORDERABLES Final Result Performing Organization Address City/State/[facility] Co il Phone Number [facility] MH [address] [facility] Department [place] [address] from Last 3 Months or Most Recently Relevant to Health Maintenance Insurance MEDICARE [facility] MEDICARE [employer] [place] Advance Directives For more information, please contact: [phone] * Full Code (Latest Code Status on File) Date Activated Date Inactivated Comments 10/11/2021 11:03 AM 10/17/2021 4:20 PM Care Teams Signal Maintainer Helper Relationship Specialty Start Date End Date Rios Reyes MD [address] [place] [address] PCP - General Family Medicine 07/04/20 Abhi Stearns MD [address] [facility] [place] [address] Studio Sales Associate Cardiovascular Disease 11/09/20
--- OUTSIDE RECORDS SUMMARY | 2024-06-14 13:30 | XMS_ITS | Encounter Summary ---
Author Organization [facility] Address [address] [facility] [place] [address] Care Team Providers Care Cipher Expert Name Role Phone Rios Reyes MD Primary Care Provider Reason for Visit * Reason Onset Date Comments MEDICATION REFILL 05/01/2023 Encounter Details Date Type Department Care Team (Late Contact Info) Description 05/01/2023 Refill [facility] [address] [place] [phone] Vern Love MD [address] [place] [address] [address] [place] [phone] MEDICATION REFILL Social History Tobacco Use Types Packs/Day Years Used Date Smoking Tobacco: Never Smokeless Tobacco: Never Alcohol Use Standard Drinks/Week Comments Yes 0 (1 standard drink = 0.6 oz pur e alcohol) Sex and Gender Information Value Date Recorded Sex Assigned at Not on file Gender Identity Not on file Sexual Orientation Not on file documented as of this encounter Plan of Treatment Upcoming Encounters Date Type Department Care Team (Late Contact Info) Description 09/13/2024 1:00 PM CDT Office Visit [facility] - Neurology [address] [place] [phone] Vern Love MD [address] [place] [address] [address] [place] [address] documented as of this encounter Visit Diagnoses Not on filedocumented in this encounter Care Teams Cipher Expert Relationship Specialty Start Date End Date Rios Reyes MD [address] [facility] [address] [place] [phone] PCP - General Family Medicine 09/08/23 documented as of this encounter
--- OUTSIDE RECORDS SUMMARY | 2024-06-14 13:30 | XMS_ITS | Encounter Summary ---
Author Organization [facility] Address [address] [place] [address] Care Team Providers Care Spool Maker Name Role Phone Rios Reyes MD Primary Care Provider Reason for Visit * Reason Onset Date Comments MEDICATION REFILL 08/12/2023 Encounter Details Date Type Department Care Team (Late st Contact Info) Description 08/12/2023 Refill [facility] [address] [place] [address], [facility] [place] [address] Vern Love MD [address] [place] [address] [place] [address] MEDICATION REFILL Social History Tobacco Use Types Packs/Day Years Used Date Smoking Tobacco: Never Smokeless Tobacco: Never Alcohol Use Standard Drinks/Week Comments Yes 0 (1 standard drink = 0.6 oz pur e alcohol) Sex and Gender Information Value Date Recorded Sex Assigned at Not on file Gender Identity Not on file Sexual Orientation Not on file documented as of this encounter Miscellaneous Notes * Telephone Encounter - Rakna Jarvisa - 08/24/2023 7:54 AM CDT Refill Request Silviano Dickson YAZ: NOV due: 08/21/2023 NOV scheduled: 08/21/2023 LRF: 05/13/2023 Qty Disp: 30 # of refills: 2 Allergies: No Known Allergies Pended Medication Order: Requested Prescriptions Pending Prescriptions Disp Refills predniSONE (Deltasone) 10 MG tablet 30 tablet 2 Sig: TAKE ONE TABLET BY MOUTH EVERY OTHER DAY, ALTERNATING WITH 1/2 TABLET EVERY OTHER DAY DIRECTED documented in this encounter Plan of Treatment Upcoming Encounters Date Type Department Care Team (Late st Contact Info) Description 09/13/2024 1:00 PM CDT Office Visit [facility] - Neurology [address] [place] [address], [place] [address] Vern Love MD [address] [place] [phone] documented as of this encounter Visit Diagnoses Not on filedocumented in this encounter Care Teams Spool Maker Relationship Specialty Start Date End Date Rios Reyes MD [address] [facility] [address] [place] [phone] PCP - General Family Medicine 09/08/23 documented as of this encounter
--- OUTSIDE RECORDS SUMMARY | 2024-06-14 13:30 | XMS_ITS | Encounter Summary ---
Author Organization [facility] Facility Care Team Providers Care Clinical Exercise Physiologist Name Role Phone No, Physician Primary Care Provider Rios Reyes MD Primary Care Provid er Abhi Stearns MD Unavailable [phone] Antoinette Howard RN Unavailable [phone] WhitlockPenny mckenzie [facility] Unavailable [phone] Encounter Details Date Type Department Care Team (Latest Contact Info) Description 05/23/2015 Orders Only [facility] ProviderElle MD [address] [place] [id number] Social History Tobacco Use Types Packs/Day Years Used Date Smoking Tobacco: Never Assessed Sex and Gender Information Value Date Recorded Sex Assigned at Not on file 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 Historical Provider [facility] Final Result documented in this encounter Visit Diagnoses Not on filedocumented in this encounter Care Teams Clinical Exercise Physiologist Relationship Specialty Start Date End Date No, Physician PCP - General 06/16/18 07/03/20 Rios Reyes MD [address] [place] [address] PCP - General Family Medicine 07/04/20 Abhi Stearns MD [address] [place] [address] Estate Planning Paralegal Cardiovascular Disease 11/09/20 Antoinette Howard, RN [address] [place] [address] Orthopedically Impaired Teacher 10/18/21 11/13/21 Penny Whitlock RP [address] [place] [address] Pharmacist Pharmacy 10/18/21 10/29/21 documented as of this encounter
--- OUTSIDE RECORDS SUMMARY | 2024-06-14 13:30 | XMS_ITS | Encounter Summary ---
Author Organization [facility] Facility Care Team Providers Care Vegetable Preparer Name Role Phone No, Physician Primary Care Provider Rios Reyes MD Primary Care Provid er Abhi Stearns MD Unavailable [phone] Antoinette Howard RN Unavailable [phone] Penny Whitlock [facility] Unavailable [phone] Encounter Details Date Type Department Care Team (Latest Contact Info) Description 11/15/2015 Orders Only [facility] CLINCONV ProviderElle MD [address] [place] [id number] Social History Tobacco Use Types Packs/Day Years Used Date Smoking Tobacco: Never Assessed Sex and Gender Information Value Date Recorded Sex Assigned at Not on file Legal Sex Male 9:14 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 us Historical Provider [facility] PROCE DURES Final Result * CARDIOLOGY REPORT (11/15/2015 12:00 AM CDT) Anatomical Region Laterality Modality Other Narrative 11/15/2015 12:00 AM CDT Ordered by an unspecified provider. us Historical Provider [facility] C[facility] SERVICES PROCE DURES Final Result documented in this encounter Visit Diagnoses Not on filedocumented in this encounter Care Teams Vegetable Preparer Relationship Specialty Start Date End Date No, Physician PCP - General 06/16/18 07/03/20 Rios Reyes MD [address] [place] [address] PCP - General Family Medicine 07/04/20 Abhi Stearns MD [address] [facility] [address] [address] Head Host/Hostess Cardiovascular Disease 11/09/20 Antoinette Howard, RN [address] [place] [address] [address] [place] [address] Potato Chip Sacking Machine Operator 10/18/21 11/13/21 Penny Whitlock RPh [address] [place] [address] [address] [place] [address] Pharmacist Pharmacy 10/18/21 10/29/21 documented as of this encounter
--- OUTSIDE RECORDS SUMMARY | 2024-06-14 13:30 | XMS_ITS | Encounter Summary ---
Author Organization [facility] Facility Care Team Providers Care Solutions Developer Name Role Phone No, Physician Primary Care Provider Rios Reyes MD Primary Care Provid er Abhi Stearns MD Unavailable [phone] Antoinette Hwoard RN Unavailable [phone] WhitlockPenny mckenzie [facility] Unavailable [phone] Encounter Details Date Type Department Care Team (Latest Contact Info) Description 01/15/2016 Orders Only [facility] CLINCONV ProviderElle MD [address] [place] [id number] Social History Tobacco Use Types Packs/Day Years Used Date Smoking Tobacco: Never Assessed Sex and Gender Information Value Date Recorded Sex Assigned at Not on file Legal Sex Male 9:14 AM INSULATION BOARD HEAD SAW OPERATOR Gender Identity Not on file Sexual Orientation Not on file documented as of this encounter Plan of Treatment Not on file documented as of this encounter Procedures Procedure Name Priority Date/Time Associated Diagnosis Comments CARDIOLOGY REPORT 01/15/2016 12: 00 AM INSULATION BOARD HEAD SAW OPERATOR documented in this encounter Results * CARDIOLOGY REPORT (01/15/2016 12:00 AM INSULATION BOARD HEAD SAW OPERATOR) Anatomical Region Laterality Modality Other Narrative 01/15/2016 12:00 AM INSULATION BOARD HEAD SAW OPERATOR Ordered by an unspecified provider. Historical Provider [facility] [place] Final Result documented in this encounter Visit Diagnoses Not on filedocumented in this encounter Care Teams Solutions Developer Relationship Specialty Start Date End Date No, Physician PCP - General 06/16/18 07/03/20 Rios Reyes MD [address] [place] [address] PCP - General Family Medicine 07/04/20 Abhi Stearns MD [address] [facility] [address] [address] Mini Baccarat Dealer Cardiovascular Disease 11/09/20 Antoinette Howard, RN [address] [facility] [address] [place] [address] Etl [employer] Architect 10/18/21 11/13/21 Penny Whitlock [facility] [address] [facility] [address] [place] [address] Pharmacist Pharmacy 10/18/21 10/29/21 documented as of this encounter
--- OUTSIDE RECORDS SUMMARY | 2024-06-14 13:30 | XMS_ITS | Patient Health Record ---
Author Organization [facility] [place] Address [address] [place] [address] Care Team Providers Care Frame Feeder Name Role Phone Antonio Malagon Unavailable [phone] ALLERGIES No Known Allergies REASON FOR REFERRAL No Information MEDICATIONS Medication SIG (Take, Route, Fr equency, Duration) Notes Start Date End Date Status Carvedilol 25 MG Oral for 90 Days Active Dilt-XR 120 MG Oral for 90 Days Active predniSONE 10 MG Oral for 45 Days Active Baclofen 5 MG 1 tablet as needed O rally three times a day for 30 days 01/21/2024 Active SOCIAL HISTORY Tobacco Use: Social History Observation Description Date Details (start date - stop date) Never Smoker NA - NA Sex Assigned At : Social History Observation Description Sex Assigned At Unknown Tobacco Use/Smoking Question Answer Notes Are you a nonsmoker PROBLEMS Problem Type ICD Code Onset Dates Problem Status W/U Status Risk SNOMED Code Notes Problem 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) Active confirmed Lumbosacral spondylosis without myelopathy (78077339) Problem Bilateral sacroiliitis (M46.1) Active confirmed Bilateral sacroiliitis (1460042063) Problem Myalgia, unspecified site (M79.10) Active confirmed Muscle pain (45007808) Problem Lumbosacral radiculopathy (M54.17) Active confirmed Lumbosacral radiculopathy (4904719) Problem Low back pain, unspecified (M54.50) Active confirmed Low back pain (178522829) VITAL SIGNS Heart Rate 72 /min 02/29/2024 Temperature 97.7 degrees Fahrenheit 02/29/2024 Respiratory Rate 18 /min 02/29/2024 Blood pressure diastolic 82 mm Hg 02/29/2024 Height 68 in 02/29/2024 Blood pressure systolic 118 mm Hg 02/29/2024 Weight 160 lbs 02/29/2024 BMI 24.33 kg/m2 02/29/2024 Encounters Encounter Location Date Provider Diagnosis [facility] [address] [address] 01/28/2024 Antonio Cajigal [facility] [address] [address] 11/05/2023 Antonio Cajigal Low back pain, unspecified M54.50 and Arthropathy of lumbosacral facet joint M47.817 [facility] [address] [address] 11/19/2023 Antonio Cajigal Low back pain, unspecified M54.50 and Arthropathy of lumbosacral facet joint M47.817 [facility] [address] [place] [address] 12/03/2023 Antonio Cajigal Low back pain, unspecified M54.50 and Arthropathy of lumbosacral facet joint M47.817 [facility] [address] [place] [address] 12/31/2023 Antonio Cajigal Low back pain, unspecified M54.50 ; Arthropathy of lumbosacral facet joint M47.817 and Bilateral sacroiliitis M46.1 [facility] [address] [address] 01/14/2024 Antonio Cajigal Myalgia, unspecified site M79.10 ; Low back pain, unspecified M54.50 ; Arthropathy of lumbosacral facet joint M47.817 and Bilateral sacroiliitis M46.1 [facility] [address] [place] [address] 02/11/2024 Antonio Cajigal Myalgia, unspecified site M79.10 ; Low back pain, unspecified M54.50 ; Arthropathy of lumbosacral facet joint M47.817 and Bilateral sacroiliitis M46.1 [facility] [address] [address] 02/29/2024 Antonio Cajigal Myalgia, unspecified site M79.10 ; Low back pain, unspecified M54.50 ; Arthropathy of lumbosacral facet joint M47.817 ; Bilateral sacroiliitis M46.1 and Lumbosacral radiculopathy M54.17 [facility] [address] [place] [address] 11/06/2023 Antonio Cajigal [facility] [address] [place] [address] 11/19/2023 Antonio Cajigal [facility] [address] [place] [address] 12/04/2023 Antonio Cajigal [facility] [address] [address] 01/21/2024 [facility] ASSESSMENTS Encounter Date Diagnosis Assessment Notes Treatment Notes Treatment Clinical Notes Section Notes 11/05/2023 Arthropathy of lumbosacral facet joint (ICD-10 - M47.817) Chronic, exacerbated. Expected to last greater than 1 year. Goals pain management are to decrease his pain.1. No UDS today. We will not pursue opioid therapy in this patient.2. Recommend to remain as active as possible.3. History of physical therapy for 6 weeks with persistent pain unfortunately.4. History of occasional caregiver for 3 weeks with persistent pain unfortunately.5. CT lumbar spine reviewed showing multiple levels of retrolisthesis, multilevel severe degenerative disc disease resulting in central canal and foraminal narrowing. Please see scanned documents for more details. 6. Proceed with first diagnostic lumbar medial branch block today. Repeat in 2 weeks, if good result, schedule for RFA. Risks of interventional procedure includes bleeding, pain, infection, failure of treatment, injury to nerve or other body parts. 11/05/2023 Low back pain, unspecified (ICD-10 - M54.50) Chronic, exacerbated. Expected to last greater than 1 year. Goals pain management are to decrease his pain.1. No UDS today. We will not pursue opioid therapy in this patient.2. Recommend to remain as active as possible.3. History of physical therapy for 6 weeks with persistent pain unfortunately.4. History of occasional caregiver for 3 weeks with persistent pain unfortunately.5. CT lumbar spine reviewed showing multiple levels of retrolisthesis, multilevel severe degenerative disc disease resulting in central canal and foraminal narrowing. Please see scanned documents for more details. 6. Proceed with first diagnostic lumbar medial branch block today. Repeat in 2 weeks, if good result, schedule for RFA. Risks of interventional procedure includes bleeding, pain, infection, failure of treatment, injury to nerve or other body parts. 7. If minimal benefit with above therapies, consider SI joint injections. Risks of interventional procedure includes bleeding, pain, infection, failure of treatment, injury to nerve or other body parts. 11/19/2023 Low back pain, unspecified (ICD-10 - M54.50) Chronic, exacerbated. Expected to last greater than 1 year. Goals pain management are to decrease his pain.1. We will not pursue opioid therapy in this patient.2. Recommend to remain as active as possible.3. History of physical therapy for 6 weeks with persistent pain unfortunately.4. History of occasional caregiver for 3 weeks with persistent pain unfortunately.5. CT lumbar spine reviewed showing multiple levels of retrolisthesis, multilevel severe degenerative disc disease resulting in central canal and foraminal narrowing. Please see scanned documents for more details. 6. S/p first diagnostic lumbar medial branch block with 90% improvement in pain. Repeat today, if good result, schedule for RFA. Risks of interventional procedure includes bleeding, pain, infection, failure of treatment, injury to nerve or other body parts. 7. If minimal benefit with above therapies, consider SI joint injections. Risks of interventional procedure includes bleeding, pain, infection, failure of treatment, injury to nerve or other body parts. 12/03/2023 Low back pain, unspecified (ICD-10 - M54.50) Chronic, exacerbated. Expected to last greater than 1 year. Goals pain management are to decrease his pain.1. We will not pursue opioid therapy in this patient.2. Recommend to remain as active as possible.3. History of physical therapy for 6 weeks with persistent pain unfortunately.4. History of occasional caregiver for 3 weeks with persistent pain unfortunately.5. CT lumbar spine reviewed showing multiple levels of retrolisthesis, multilevel severe degenerative disc disease resulting in central canal and foraminal narrowing. Please see scanned documents for more details. 6. S/p diagnostic lumbar medial branch block x2 with >80% improvement in pain. Proceed with RFA. Recommend to ice back 20 minutes on 20 minutes off for the next 3 to 4 days. Recommend to take [id number] NSAIDs as needed for postop pain. Risks of interventional procedure includes bleeding, pain, infection, failure of treatment, injury to nerve or other body parts. 7. If minimal benefit with above therapies, consider SI joint injections. Risks of interventional procedure includes bleeding, pain, infection, failure of treatment, injury to nerve or other body parts. 12/31/2023 Arthropathy of lumbosacral facet joint (ICD-10 - M47.817) Chronic, exacerbated. Expected to last greater than 1 year. Goals pain management are to decrease his pain.1. We will not pursue opioid therapy in this patient.2. Recommend to remain as active as possible.3. History of physical therapy for 6 weeks with persistent pain unfortunately.4. History of occasional caregiver for 3 weeks with persistent pain unfortunately.5. CT lumbar spine reviewed showing multiple levels of retrolisthesis, multilevel severe degenerative disc disease resulting in central canal and foraminal narrowing. Please see scanned documents for more details. 6. S/p bilateral lumbar medial branch RFA with 80% improvement in pain. Repeat as necessary per patient. Minimum amount of time in between RFA is 6 months. Risks of interventional procedure includes bleeding, pain, infection, failure of treatment, injury to nerve or other body parts. 12/31/2023 Low back pain, unspecified (ICD-10 - M54.50) Chronic, exacerbated. Expected to last greater than 1 year. Goals pain management are to decrease his pain.1. We will not pursue opioid therapy in this patient.2. Recommend to remain as active as possible.3. History of physical therapy for 6 weeks with persistent pain unfortunately.4. History of occasional caregiver for 3 weeks with persistent pain unfortunately.5. CT lumbar spine reviewed showing multiple levels of retrolisthesis, multilevel severe degenerative disc disease resulting in central canal and foraminal narrowing. Please see scanned documents for more details. 6. S/p bilateral lumbar medial branch RFA with 80% improvement in pain. Repeat as necessary per patient. Minimum amount of time in between RFA is 6 months. Risks of interventional procedure includes bleeding, pain, infection, failure of treatment, injury to nerve or other body parts. 7. Proceed with bilateral SI joint injection given history and physical exam findings. Risks of interventional procedure includes bleeding, pain, infection, failure of treatment, injury to nerve or other body parts. 01/14/2024 Myalgia, unspecified site (ICD-10 - M79.10) Chronic, exacerbated. Expected to last greater than 1 year. Goals pain management are to decrease his pain. 1. Proceed with trigger point injection given history, physical exam findings. Risks of interventional procedure includes bleeding, pain, infection, failure of treatment, injury to nerve or other body parts. 2. Recommend to pursue heating, stretching, massage, exercise for myofascial pain 02/11/2024 Myalgia, unspecified site (ICD-10 - M79.10) Chronic, exacerbated. Expected to last greater than 1 year. Goals pain management are to decrease his pain. 1. S/p trigger point injection without benefit. Risks of interventional procedure includes bleeding, pain, infection, failure of treatment, injury to nerve or other body parts. 2. Recommend to pursue heating, stretching, massage, exercise for myofascial pain 02/29/2024 Myalgia, unspecified site (ICD-10 - M79.10) Chronic, exacerbated. Expected to last greater than 1 year. Goals pain management are to decrease his pain. 1. History of trigger point injection without benefit. Risks of interventional procedure includes bleeding, pain, infection, failure of treatment, injury to nerve or other body parts. 2. Recommend to pursue heating, stretching, massage, exercise for myofascial pain 02/29/2024 Low back pain, unspecified (ICD-10 - M54.50) Chronic, exacerbated. Expected to last greater than 1 year. Goals pain management are to decrease his pain.1. We will not pursue opioid therapy in this patient.2. Recommend to remain as active as possible.3. History of physical therapy for 6 weeks with persistent pain unfortunately.4. History of occasional caregiver for 3 weeks with persistent pain unfortunately.5. CT lumbar spine reviewed showing multiple levels of retrolisthesis, multilevel severe degenerative disc disease resulting in central canal and foraminal narrowing. Please see scanned documents for more details. 6. History of bilateral lumbar medial branch RFA with 80% improvement in pain. Repeat as necessary per patient. Minimum amount of time in between RFA is 6 months. Risks of interventional procedure includes bleeding, pain, infection, failure of treatment, injury to nerve or other body parts. 7. History of bilateral SI joint injection with >50% improvement in pain. Repeat as neccssary per patient. Risks of interventional procedure includes bleeding, pain, infection, failure of treatment, injury to nerve or other body parts. 02/11/2024 Low back pain, unspecified (ICD-10 - M54.50) Chronic, exacerbated. Expected to last greater than 1 year. Goals pain management are to decrease his pain.1. We will not pursue opioid therapy in this patient.2. Recommend to remain as active as possible.3. History of physical therapy for 6 weeks with persistent pain unfortunately.4. History of occasional caregiver for 3 weeks with persistent pain unfortunately.5. CT lumbar spine reviewed showing multiple levels of retrolisthesis, multilevel severe degenerative disc disease resulting in central canal and foraminal narrowing. Please see scanned documents for more details. 6. History of bilateral lumbar medial branch RFA with 80% improvement in pain. Repeat as necessary per patient. Minimum amount of time in between RFA is 6 months. Risks of interventional procedure includes bleeding, pain, infection, failure of treatment, injury to nerve or other body parts. 7. History of bilateral SI joint injection with >50% improvement in pain. Repeat as neccssary per patient. Risks of interventional procedure includes bleeding, pain, infection, failure of treatment, injury to nerve or other body parts. 8. Recommend to follow-up with neurosurgery for persistent severe back pain. Has appointment tomorrow. 02/29/2024 Arthropathy of lumbosacral facet joint (ICD-10 - M47.817) Chronic, exacerbated. Expected to last greater than 1 year. Goals pain management are to decrease his pain.1. We will not pursue opioid therapy in this patient.2. Recommend to remain as active as possible.3. History of physical therapy for 6 weeks with persistent pain unfortunately.4. History of occasional caregiver for 3 weeks with persistent pain unfortunately.5. CT lumbar spine reviewed showing multiple levels of retrolisthesis, multilevel severe degenerative disc disease resulting in central canal and foraminal narrowing. Please see scanned documents for more details. 6. History of bilateral lumbar medial branch RFA with 80% improvement in pain. Repeat as necessary per patient. Minimum amount of time in between RFA is 6 months. Risks of interventional procedure includes bleeding, pain, infection, failure of treatment, injury to nerve or other body parts. 01/14/2024 Low back pain, unspecified (ICD-10 - M54.50) Chronic, exacerbated. Expected to last greater than 1 year. Goals pain management are to decrease his pain.1. We will not pursue opioid therapy in this patient.2. Recommend to remain as active as possible.3. History of physical therapy for 6 weeks with persistent pain unfortunately.4. History of occasional caregiver for 3 weeks with persistent pain unfortunately.5. CT lumbar spine reviewed showing multiple levels of retrolisthesis, multilevel severe degenerative disc disease resulting in central canal and foraminal narrowing. Please see scanned documents for more details. 6. History of bilateral lumbar medial branch RFA with 80% improvement in pain. Repeat as necessary per patient. Minimum amount of time in between RFA is 6 months. Risks of interventional procedure includes bleeding, pain, infection, failure of treatment, injury to nerve or other body parts. 7. S/p bilateral SI joint injection with >50% improvement in pain. Repeat as neccssary per patient. Risks of interventional procedure includes bleeding, pain, infection, failure of treatment, injury to nerve or other body parts. 12/31/2023 Bilateral sacroiliitis (ICD-10 - M46.1) 12/03/2023 Arthropathy of lumbosacral facet joint (ICD-10 - M47.817) Chronic, exacerbated. Expected to last greater than 1 year. Goals pain management are to decrease his pain.1. We will not pursue opioid therapy in this patient.2. Recommend to remain as active as possible.3. History of physical therapy for 6 weeks with persistent pain unfortunately.4. History of occasional caregiver for 3 weeks with persistent pain unfortunately.5. CT lumbar spine reviewed showing multiple levels of retrolisthesis, multilevel severe degenerative disc disease resulting in central canal and foraminal narrowing. Please see scanned documents for more details. 6. S/p diagnostic lumbar medial branch block x2 with >80% improvement in pain. Proceed with RFA. Recommend to ice back 20 minutes on 20 minutes off for the next 3 to 4 days. Recommend to take [id number] NSAIDs as needed for postop pain. Risks of interventional procedure includes bleeding, pain, infection, failure of treatment, injury to nerve or other body parts. 11/19/2023 Arthropathy of lumbosacral facet joint (ICD-10 - M47.817) Chronic, exacerbated. Expected to last greater than 1 year. Goals pain management are to decrease his pain.1. We will not pursue opioid therapy in this patient.2. Recommend to remain as active as possible.3. History of physical therapy for 6 weeks with persistent pain unfortunately.4. History of occasional caregiver for 3 weeks with persistent pain unfortunately.5. CT lumbar spine reviewed showing multiple levels of retrolisthesis, multilevel severe degenerative disc disease resulting in central canal and foraminal narrowing. Please see scanned documents for more details. 6. S/p first diagnostic lumbar medial branch block with 90% improvement in pain. Repeat today, if good result, schedule for RFA. Risks of interventional procedure includes bleeding, pain, infection, failure of treatment, injury to nerve or other body parts. 01/14/2024 Arthropathy of lumbosacral facet joint (ICD-10 - M47.817) Chronic, exacerbated. Expected to last greater than 1 year. Goals pain management are to decrease his pain.1. We will not pursue opioid therapy in this patient.2. Recommend to remain as active as possible.3. History of physical therapy for 6 weeks with persistent pain unfortunately.4. History of occasional caregiver for 3 weeks with persistent pain unfortunately.5. CT lumbar spine reviewed showing multiple levels of retrolisthesis, multilevel severe degenerative disc disease resulting in central canal and foraminal narrowing. Please see scanned documents for more details. 6. History of bilateral lumbar medial branch RFA with 80% improvement in pain. Repeat as necessary per patient. Minimum amount of time in between RFA is 6 months. Risks of interventional procedure includes bleeding, pain, infection, failure of treatment, injury to nerve or other body parts. 02/11/2024 Arthropathy of lumbosacral facet joint (ICD-10 - M47.817) Chronic, exacerbated. Expected to last greater than 1 year. Goals pain management are to decrease his pain.1. We will not pursue opioid therapy in this patient.2. Recommend to remain as active as possible.3. History of physical therapy for 6 weeks with persistent pain unfortunately.4. History of occasional caregiver for 3 weeks with persistent pain unfortunately.5. CT lumbar spine reviewed showing multiple levels of retrolisthesis, multilevel severe degenerative disc disease resulting in central canal and foraminal narrowing. Please see scanned documents for more details. 6. History of bilateral lumbar medial branch RFA with 80% improvement in pain. Repeat as necessary per patient. Minimum amount of time in between RFA is 6 months. Risks of interventional procedure includes bleeding, pain, infection, failure of treatment, injury to nerve or other body parts. 02/29/2024 Bilateral sacroiliitis (ICD-10 - M46.1) 02/11/2024 Bilateral sacroiliitis (ICD-10 - M46.1) 01/14/2024 Bilateral sacroiliitis (ICD-10 - M46.1) 02/29/2024 Lumbosacral radiculopathy (ICD-10 - M54.17) Chronic, exacerbated. Expected to last greater than 1 year. Goals pain management are to decrease his pain. 1. Proceed with bilateral L4-5 selective MELIDA given history, physical exam, imaging findings for his claudicatory symptoms per neurosurgery request. Has been off of his Eliquis for at least 3 days prior to the procedure. Risks of interventional procedure includes bleeding, pain, infection, failure of treatment, injury to nerve or other body parts. 2. Recommend to follow-up with neurosurgery after procedure 11/05/2023 Other MDM: 2 or more chronic exacerbated illnesses and moderate risk morbidity secondary to interventional pain procedures. 11/19/2023 Other MDM: 2 or more chronic exacerbated illnesses and moderate risk morbidity secondary to interventional pain procedures. 12/03/2023 Other MDM: 2 or more chronic exacerbated illnesses and moderate risk morbidity secondary to interventional pain procedures. 12/31/2023 Other MDM: 2 or more chronic exacerbated illnesses and moderate risk morbidity secondary to interventional pain procedures. 01/14/2024 Other MDM: 2 or more chronic exacerbated illnesses and moderate risk morbidity secondary to interventional pain procedures. 02/11/2024 Other MDM: 2 or more chronic exacerbated illnesses and moderate risk morbidity secondary to interventional pain procedures. 02/29/2024 Other MDM: 2 or more chronic exacerbated illnesses and moderate risk morbidity secondary to interventional pain procedures. PLAN OF TREATMENT No Information MEDICAL (GENERAL) HISTORY Medical History History ICD Code hypertension
--- OUTSIDE RECORDS SUMMARY | 2024-06-14 13:31 | XMS_ITS ---
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 Name Role Phone Manas Antonio Unavailable [phone] ALLERGIES No Known Allergies REASON FOR VISIT Procedure: Bilateral L4-5 selective MELIDA MEDICATIONS Medication SIG (Take, Route, Fr equency, Duration) Notes Start Date End Date Status Carvedilol 25 MG Oral for 90 Days Active Dilt-XR 120 MG Oral for 90 Days Active predniSONE 10 MG Oral for 45 Days Active Baclofen 5 MG 1 tablet as needed O rally three times a day for 30 days 01/21/2024 Active PROBLEMS Problem Type ICD Code Onset Dates Problem Status W/U Status Risk SNOMED Code Notes Problem Lumbosacral radiculopathy (M54.17) Active confirmed Lumbosacral radiculopathy (6135712) VITAL SIGNS Temperature 97.7 degrees Fahrenheit 02/29/20 24 Blood pressure systolic 118 mm Hg 02/29/20 24 Blood pressure diastolic 82 mm Hg 024 Heart Rate 72 /min 02/29/2024 Respiratory Rate 18 /min 02/29/2024 Height 68 in 02/29/2024 Weight 160 lbs 02/29/2024 BMI 24.33 kg/m2 02/29/2024 Encounters Encounter Location Date Provider Diagnosis [place] [facility] [address] [place] [address] 02/29/2024 Antonio Malagon Myalgia, unspecified site M79.10 ; Low back pain, unspecified M54.50 ; Arthropathy of lumbosacral facet joint M47.817 ; Bilateral sacroiliitis M46.1 and Lumbosacral radiculopathy M54.17 ASSESSMENTS Encounter Date Diagnosis Assessment Notes Treatment Notes Treatment Clinical Notes Section Notes 02/29/2024 Myalgia, unspecified site (ICD-10 - M79.10) [...] weeks with persistent pain unfortunately.4. 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 [...] to nerve or other body parts. 02/29/2024 Arthropathy of lumbosacral facet joint (ICD-10 - M47.817) Chronic, exacerbated. Expected to last greater than 1 year. Goals pain management are to decrease his pain.1. We will not pursue opioid therapy in this patient.2. Recommend to remain as active as possible.3. History of physical therapy for 6 weeks with persistent pain unfortunately.4. 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 [...] parts. 02/29/2024 Bilateral sacroiliitis (ICD-10 - M46.1) 02/29/2024 Lumbosacral [...] Recommend to follow-up with neurosurgery after procedure 02/29/2024 Other MDM: 2 or more chronic exacerbated illnesses and moderate risk morbidity secondary to interventional pain procedures. PLAN OF TREATMENT Treatment Notes Assessment Notes Myalgia, unspecified site Chronic, exacerbated. Expected to last greater than 1 year. Goals pain management are to decrease his pain. 1. History of trigger point injection without benefit. Risks of interventional procedure includes bleeding, pain, infection, failure of treatment, injury to nerve or other body parts. 2. Recommend to pursue heating, stretching, massage, exercise for myofascial pain Low back pain, unspecified Chronic, exacerbated. Expected to last greater than 1 year. Goals pain management are to decrease his pain.1. We will not pursue opioid therapy in this patient.2. Recommend to remain as active as possible.3. History of physical therapy for 6 weeks with persistent pain unfortunately.4. 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 [...] injury to nerve or other body parts. Arthropathy of lumbosacral facet joint Chronic, exacerbated. Expected to last greater than 1 year. Goals pain management are to decrease his pain.1. We will not pursue opioid therapy in this patient.2. Recommend to remain as active as possible.3. History of physical therapy for 6 weeks with persistent pain unfortunately.4. 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 [...] injury to nerve or other body parts. Lumbosacral radiculopathy Chronic, exacerbated. Expected to last greater than [...] Recommend to follow-up with neurosurgery after procedure Other MDM: 2 or more chron ic exacerbated illnesses and moderate risk morbidity secondary to interventional pain procedures. Next Appt Details Follow Up: prn, Reason: Procedure Notes * Category Sub-Category Detail Notes DCC: Lumbar Transforaminal Epidural Steroid Injection Lumbar Transforaminal Epidural Steroid Injection Lumbar transforaminal epidural steroid injection Procedure: Lumbar transforaminal epidural steroid injection. Location: L4-5 on both sides. Preoperative diagnosis: Lumbar radiculopathy. Postoperative diagnosis: Same. Medication used: 1cc Dexamethasone 10mg/cc, 3cc 0.5% lidocaine. Sedation: None. Technique: After obtaining informed consent, the patient was brought the procedure suite and placed in the prone position. A timeout was completed prior to the procedure. The low back was exposed and prepped with chlorhexadine. Sterile drapes were applied. The C-arm was used to identify the L4-5 foramen on both side(s) in the oblique view. A 25g 1.5inch needle was used to anesthetize the skin with 6cc 1% lidocaine. A 22g 3.5inch spinal needle was inserted at each location under fluoroscopic guidance towards the superior aspect of the foramen and inferolateral aspect of the pars inticularis. A lateral view was obtained to confirm placement of the needle. After negative aspiration of heme/CSF, 1cc of omnipaque 240 was injected showing epidural spread. An AP view was obtained showing epidural spread. After negative aspiration of heme/CSF, 2cc of the above medication was injected at each location. The needles were removed without incident. The patient tolerated the procedure well without complication. The patient was transported and observed in the recovery area. Postoperative vitals were obtained and the patient discharged home in stable condition. Progress Notes * Silviano VILLADOB:1945 (78 yo M)Acc No.[id number]:02/29/2024 Progress Notes Patient: Silviano VILLA Provider: Antonio Malagon MD :1945 Age:78 Y Sex:Male Date:02/29/2024 Address:[address] [place] [address] Subjective: * Chief Complaints: * Procedure: Bilateral L4-5 selective MELIDA * HPI: Constitutional/Pain Eval: The patient is an 78-year-old male who presents clinic for procedure, bilateral L4-5 selective MELIDA. Complains of low back pain and claudicatory symptoms. Sent to us by neurosurgery for consideration L4-5 MELIDA. Has been off of his Eliquis for at least 3 days. No further complaints. Follow-up Questionnaire: Pain Evaluation This patient encounter was conducted at the [facility]. The patient completed a questionnaire on the progress that has been made since the last office visit. This form was reviewed and the responses are included in this progress note.. Location of pain: low back. Onset of pain: months ago. Average Pain Since Last Visit on Scale of 0 to 10: 4. Number describing interference w/enjoyment of life: 7. Relief from Injections/Medications: d - I am sort of better, but not much.. Improvement in functional ability: d - I feel I can do more but the pain is still very much limiting what I can or cannot do.. Level of Pain on 1-10 Scale w/ 10 being most severe- TODAY 4. Level of Pain on 1-10 Scale w/ 10 being most severe- LEAST 1. Level of Pain on 1-10 Scale w/ 10 being most severe- WORST 7. Pain Level on 1-10 Scale w/ 10 being most severe- OVERALL 5. Words that best describe the pain: aching. Duration of pain: constant. Aggravating/Associated factors of pain: walking, taking stairs. The Pain is Associated with: weakness. * ROS: Pain Management ROS: Patient Denies: GENERAL: weight or appetite changes, fever, chills, disturbed sleeping habits. Patient Denies: EYE: eye infections, blurred vision, double vision, blindness. Patient Denies: ENT: hearing loss, inflamed nose, hoarseness, sore throat, bloody nose, sinusitis, dizziness. Patient Denies: CARDIAC: chest pains, heart murmur, skipped beats. Patient Denies: GENITOURINARY bladder incontinence, difficulty urinating. Patient Denies: RESPIRATORY cough, coughing up blood, wheezing, shortness of breath, difficulty breathing on exertion. Patient Denies: GI constipation, diarrhea, blood in stools, nausea/vomiting. Patient Denies: NEUROLOGIC headaches, dizziness, falling, seizures, numbness, tremor. Patient Denies: ENDOCRINE hot and cold flashes. Patient Denies: HEMATOLOGICAL easy bruisability, difficulty in clotting the blood. Patient Denies: JOINTS joint or muscle limitation and pain other than the present illness. Patient Denies: PSYCHIATRIC: depression, mood swings, anxiety. Patient Denies: SKIN lacerations, abrasions, postules, nodules, tumors, breast changes. * Medical History: * Surgical History: No Surgical History documented. * Hospitalization/Major Diagno stic Procedure: No Hospitalization History. * Family History: No Family History documented.. * Social History: Education: How far did you get in your education?: college. * Medications: TakingDilt-XR 120 MG Capsule Extended Release 24 Hour Oral Carvedilol 25 MG Tablet Oral predniSONE 10 MG Tablet Oral Baclofen 5 MG Tablet 1 tablet as needed Orally three times a day Medication List reviewed and reconciled with the patientTaking Dilt-XR 120 MG Capsule Extended Release 24 Hour Oral Taking Carvedilol 25 MG Tablet Oral Taking predniSONE 10 MG Tablet Oral Taking Baclofen 5 MG Tablet 1 tablet as needed Orally three times a day Medication List reviewed and reconciled with the patient * Allergies: N.K.D.A.no[Allergies Verified] Objective: * Vitals: Temp: 97.7 F, HR: 72 /min, BP: 118/82 mm Hg, Wt: 160 lbs, BMI: 24.33 Index, Ht: 68 in, RR: 18 /min, Ht-cm: 172.72 cm, Wt-k.57 kg. * Examination: ...: BACK: + SLR to BLE. Assessment: * Assessment: 1. Myalgia, unspecified site - M79.10 (Primary) 2. Low back pain, unspecified - M54.50 3. Arthropathy of lumbosacral facet joint - M47.817 4. Bilateral sacroiliitis - M46.1 5. Lumbosacral radiculopathy - M54.17 Plan: * Treatment: 2. Low back pain, unspecified Notes: Chronic, exacerbated. Expected to last greater than 1 year. Goals pain management are to decrease his pain.1. We will not pursue opioid therapy in this patient.2. Recommend to remain as active as possible.3. History of physical therapy for 6 weeks with persistent pain unfortunately.4. 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 [...] injury to nerve or other body parts. 3. Arthropathy of lumbosacral facet joint Notes: Chronic, exacerbated. Expected to last greater than 1 year. Goals pain management are to decrease his pain.1. We will not pursue opioid therapy in this patient.2. Recommend to remain as active as possible.3. History of physical therapy for 6 weeks with persistent pain unfortunately.4. 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 [...] injury to nerve or other body parts. 4. Lumbosacral radiculopathy Notes: Chronic, exacerbated. Expected to last greater than [...] Recommend to follow-up with neurosurgery after procedure 5. Others Notes: MDM: 2 or more chronic exacerbated illnesses and moderate risk morbidity secondary to interventional pain procedures. * Procedures: DCC: Lumbar Transforaminal Epidural Steroid Injection: Lumbar Transforaminal Epidural Steroid Injection Lumbar transforaminal epidural steroid injection Procedure: Lumbar transforaminal epidural steroid injection. Location: L4-5 on both sides. Preoperative diagnosis: Lumbar radiculopathy. Postoperative diagnosis: Same. Medication used: 1cc Dexamethasone 10mg/cc, 3cc 0.5% lidocaine. Sedation: None. Technique: After obtaining informed consent, the patient was brought the procedure suite and placed in the prone position. A timeout was completed prior to the procedure. The low back was exposed and prepped with chlorhexadine. Sterile drapes were applied. The C-arm was used to identify the L4-5 foramen on both side(s) in the oblique view. A 25g 1.5inch needle was used to anesthetize the skin with 6cc 1% lidocaine. A 22g 3.5inch spinal needle was inserted at each location under fluoroscopic guidance towards the superior aspect of the foramen and inferolateral aspect of the pars inticularis. A lateral view was obtained to confirm placement of the needle. After negative aspiration of heme/CSF, 1cc of omnipaque 240 was injected showing epidural spread. An AP view was obtained showing epidural spread. After negative aspiration of heme/CSF, 2cc of the above medication was injected at each location. The needles were removed without incident. The patient tolerated the procedure well without complication. The patient was transported and observed in the recovery area. Postoperative vitals were obtained and the patient discharged home in stable condition.. * Procedure Codes: 21843 INJ FORAMEN EPIDURAL L/S, Modifiers: 50 * Preventive Medicine: PQRS: PQRS G8417: BMI above normal (overweight) and f/u plan documented., G8428: Current medication with name, dosage, frequency, or route NOT documented, not given - performance NOT met., 1036F: Patient screened for tobacco use and identified as a non-user of tobacco.. Oswestry Score: Oswestry Score 22. * Follow Up: prn * Images: * Sign off status: Completed true * Provider: Antonio Malagon MD Date: 02/29/2024 History and Physical Notes * HPI (History of Present Illness) Category Sub-Category Detail Notes Category Not es Follow-up Questionnaire Average Pain Sin ce Last Visit on Scale of 0 to 10: 4 Number describing interferen ce w/enjoyment of life: 7 Relief from Injections/Medications: d - I am sort of better, but not much. Improvement in functional ability: d - I feel I can do more but the pain is still very much limiting what I can or cannot do. Pain Evaluation This patient encount er was conducted at the [facility]. The patient completed a questionnaire on the progress that has been made since the last office visit. This form was reviewed and the responses are included in this progress note. Onset of pain: months ago Location of pain: low back Duration of pain: constant Words that best describe the pain: achin g Aggravating/Associated factors of pain: walking, taking stairs Level of Pain on 1-10 Scale w/ 10 being most severe- TODAY 4 Level of Pain on 1-10 Scale w/ 10 being most severe- LEAST 1 Level of Pain on 1-10 Scale w/ 10 being most severe- WORST 7 Pain Level on 1-10 Scale w/ 10 being most severe- OVERALL 5 The Pain is Associated with: weakness Examination Category Sub-Category Detail Notes Category Not es ... BACK: + SLR to BLE
--- OUTSIDE RECORDS SUMMARY | 2024-06-14 13:32 | XMS_ITS ---
Author Organization [facility] Address [address] [place] [address] Care Team Providers Care Appraiser Land Name Role Phone Etelvinajozef Antonio Unavailable [phone] ALLERGIES No Known Allergies REASON FOR VISIT Low back pain MEDICATIONS Medication SIG (Take, Route, Fr equency, Duration) Notes Start Date End Date Status Dilt-XR 120 MG Oral for 90 Days Active Baclofen 5 MG 1 tablet as needed O rally three times a day for 30 days 01/21/2024 Active predniSONE 10 MG Oral for 45 Days Active Carvedilol 25 MG Oral for 90 Days Active VITAL SIGNS Temperature 97.8 degrees Fahrenheit 02/11/20 24 Blood pressure systolic 108 mm Hg 02/11/20 24 Blood pressure diastolic 74 mm Hg 024 Heart Rate 71 /min 02/11/2024 Respiratory Rate 18 /min 02/11/2024 Height 68 in 02/11/2024 Weight 160 lbs 02/11/2024 BMI 24.33 kg/m2 02/11/2024 Encounters Encounter Location Date Provider Diagnosis [place] [facility] [address] [facility] [place] [id number] 02/11/2024 Antonio Malagon Myalgia, unspecified site M79.10 ; Low back pain, unspecified M54.50 ; Arthropathy of lumbosacral facet joint M47.817 and Bilateral sacroiliitis M46.1 ASSESSMENTS Encounter Date Diagnosis Assessment Notes Treatment Notes Treatment Clinical Notes Section Notes 02/11/2024 Myalgia, unspecified site (ICD-10 - M79.10) Chronic, exacerbated. Expected to last greater than 1 year. Goals pain management are to decrease his pain. 1. S/p trigger point injection without benefit. Risks of interventional procedure includes bleeding, pain, infection, failure of treatment, injury to nerve or other body parts. 2. Recommend to pursue heating, stretching, massage, exercise for myofascial pain 02/11/2024 Low back pain, unspecified (ICD-10 - M54.50) Chronic, exacerbated. Expected to last greater than 1 year. Goals pain management are to decrease his pain.1. We will not pursue opioid therapy in this patient.2. Recommend to remain as active as possible.3. History of physical therapy for 6 weeks with persistent pain unfortunately.4. 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 [...] persistent severe back pain. Has appointment tomorrow. 02/11/2024 Arthropathy of lumbosacral facet joint (ICD-10 - M47.817) Chronic, exacerbated. Expected to last greater than 1 year. Goals pain management are to decrease his pain.1. We will not pursue opioid therapy in this patient.2. Recommend to remain as active as possible.3. History of physical therapy for 6 weeks with persistent pain unfortunately.4. 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 [...] to nerve or other body parts. 02/11/2024 Bilateral sacroiliitis (ICD-10 - M46.1) 02/11/2024 Other MDM: 2 or more chronic [...] weeks with persistent pain unfortunately.4. 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 [...] persistent severe back pain. Has appointment tomorrow. Arthropathy of lumbosacral facet joint Chronic, exacerbated. Expected to last greater than 1 year. Goals pain management are to decrease his pain.1. We will not pursue opioid therapy in this patient.2. Recommend to remain as active as possible.3. History of physical therapy for 6 weeks with persistent pain unfortunately.4. 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 [...] injury to nerve or other body parts. Other MDM: 2 or more chron ic exacerbated illnesses and moderate risk morbidity secondary to interventional pain procedures. Next Appt Details Follow Up: prn, Reason: Progress Notes * Silviano VILLADOB:1945 (78 yo M)Acc No.[id number]:02/11/2024 Progress Notes Patient: Silviano VILLA Provider: Antonio Malagon MD :1945 Age:78 Y Sex:Male Date:02/11/2024 Address:[address] [place] [address] Subjective: * Chief Complaints: * Low back pain * HPI: Follow-up Questionnaire: The patient is an 78-year-old male who presents clinic for follow-up, low back pain. Patient is status post trigger point injection with minimal benefit unfortunately. Discussed at this point, I do not have much to offer the patient. Patient has follow-up appointment with Dr. Ordonez tomorrow. States worse pain with standing couple minutes and has to sit back down. No further complaints. Pain Evaluation This patient encounter was conducted at the [facility]. The patient completed a questionnaire on the progress that has been made since the last office visit. This form was reviewed and the responses are included in this progress note.. Location of pain: low back. Onset of pain: months ago. Average Pain Since Last Visit on Scale of 0 to 10: 4. Number describing interference w/enjoyment of life: 8. Relief from Injections/Medications: e - I am no better at all. No relief at all.. Improvement in functional ability: d - I feel I can do more but the pain is still very much limiting what I can or cannot do.. Level of Pain on 1-10 Scale w/ 10 being most severe- TODAY 4. Level of Pain on 1-10 Scale w/ 10 being most severe- LEAST 2. Level of Pain on 1-10 Scale w/ 10 being most severe- WORST 7. Pain Level on 1-10 Scale w/ 10 being most severe- OVERALL 4. Words that best describe the pain: aching. Duration of pain: intermittent. Aggravating/Associated factors of pain: walking, standing. Relieving factors of pain: sitting. * ROS: Pain Management ROS: Patient Denies: GENERAL: weight or appetite changes, fever, chills, disturbed sleeping habits. Patient Denies: EYE: eye infections, blurred vision, double vision, blindness. Patient Reports: ENT: hearing loss. Patient Denies: ENT: inflamed nose, hoarseness, sore throat, bloody nose, [...] Allergies: N.K.D.A.no[Allergies Verified] Objective: * Vitals: Temp: 97.8 F, HR: 71 /min, BP: 108/74 mm Hg, Wt: 160 lbs, BMI: 24.33 Index, Ht: 68 in, RR: 18 /min, Ht-cm: 172.72 cm, Wt-k.57 kg. * Examination: ...: GENERAL APPEARANCE: in no acute distress, well developed, well nourished. HEAD: normocephalic, atraumatic. EYES: pupils equal, round, EOMI. ORAL CAVITY: mucosa moist. NECK/THYROID: neck supple. HEART: no murmurs, regular rate and rhythm, S1, S2 normal. LUNGS: clear to auscultation bilaterally. ABDOMEN: bowel sounds present. BACK: Pain to palpation bilateral gluteus medius at distinct tender points. EXTREMITIES: no edema BLE. NEUROLOGIC: Cranial nerves II through XII are grossly intact. Sensation intact to light touch L3-S1 dermatomes bilaterally. Strength bilateral lower extremities: 5/5 in all muscles.. PSYCH: alert, oriented, cognitive function intact, cooperative with exam, good eye contact, judgement and insight good, mood/affect full range. Assessment: * Assessment: 1. Myalgia, unspecified site - M79.10 (Primary) 2. Low back pain, unspecified - M54.50 3. Arthropathy of lumbosacral facet joint - M47.817 4. Bilateral sacroiliitis - M46.1 Plan: * Treatment: 2. Low back pain, unspecified Notes: Chronic, exacerbated. Expected to last greater than 1 year. Goals pain management are to decrease his pain.1. We will not pursue opioid therapy in this patient.2. Recommend to remain as active as possible.3. History of physical therapy for 6 weeks with persistent pain unfortunately.4. 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 [...] persistent severe back pain. Has appointment tomorrow. 3. Arthropathy of lumbosacral facet joint Notes: Chronic, exacerbated. Expected to last greater than 1 year. Goals pain management are to decrease his pain.1. We will not pursue opioid therapy in this patient.2. Recommend to remain as active as possible.3. History of physical therapy for 6 weeks with persistent pain unfortunately.4. 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 [...] to nerve or other body parts. 4. Others Notes: MDM: 2 or more chronic exacerbated illnesses and moderate risk morbidity secondary to interventional pain procedures. * Procedure Codes: * Preventive Medicine: PQRS: PQRS G8417: BMI above normal (overweight) and f/u plan documented., G8428: Current medication with name, dosage, frequency, or route NOT documented, not given - performance NOT met., 1036F: Patient screened for tobacco use and identified as a non-user of tobacco.. Oswestry Score: Oswestry Score 19. * Follow Up: prn * Images: * Sign off status: Completed true * Provider: Antonio Malagon MD Date: 02/11/2024 History and Physical Notes * HPI (History of Present Illness) Category Sub-Category Detail Notes Category Not es Follow-up Questionnaire Average Pain Sin ce Last Visit on Scale of 0 to 10: 4 Number describing interferen ce w/enjoyment of life: 8 Relief from Injections/Medications: e - I am no better at all. No relief at all. Improvement in functional ability: d - I feel I can do more but the pain is still very much limiting what I can or cannot do. Pain Evaluation This patient encount er was conducted at the [facility]. The patient completed a questionnaire on the progress that has been made since the last office visit. This form was reviewed and the responses are included in this progress note. Onset of pain: months ago Location of pain: low back Duration of pain: intermittent Words that best describe the pain: achin g Aggravating/Associated factors of pain: walking, standing Relieving factors of pain: sitting Level of Pain on 1-10 Scale w/ 10 being most severe- TODAY 4 Level of Pain on 1-10 Scale w/ 10 being most severe- LEAST 2 Level of Pain on 1-10 Scale w/ 10 being most severe- WORST 7 Pain Level on 1-10 Scale w/ 10 being most severe- OVERALL 4 Examination Category Sub-Category Detail Notes Category Not es ... GENERAL APPEARANCE: in no acute distress, well developed, well nourished HEAD: normocephalic, atrau matic EYES: pupils equal, round, EOMI NECK/THYROID: neck supple HEART: no murmurs, regular rate and rhythm, S1, S2 normal LUNGS: clear to auscultatio n bilaterally ABDOMEN: bowel sounds present NEUROLOGIC: Cranial nerves II th rough XII are grossly intact. Sensation intact to light touch L3-S1 dermatomes bilaterally. Strength bilateral lower extremities: 5/5 in all muscles. EXTREMITIES: no edema BLE BACK: Pain to palpation bi lateral gluteus medius at distinct tender points PSYCH: alert, oriented, cog nitive function intact, cooperative with exam, good eye contact, judgement and insight good, mood/affect full range ORAL CAVITY: mucosa moist
== END 2024-06-14 13:20 | disposition home or self-care (01) ==
PROVIDERS: Emergency Provider Nurse Practitioner Family; PCP Family Medicine
DX: B02.9 Zoster without complications (principal); L03.319 Cellulitis of trunk, unspecified
CPT/HCPCS: 99203; G0463

== ENCOUNTER 2024-06-17 10:12 | Emergency (ER) | payer MEDICARE, OTHER, SELFPAY ==
[2024-06-17 10:23] VITALS: BP 129/80; PULSE 70; RESP 18; TEMP 36.2; O2SAT 96
--- NOTE | 2024-06-17 10:34 | ED_ITS ---
HPI - Skin/Abscess/Foreign Bdy General Chief complaint: Skin/Abscess/Foreign Body Stated complaint: RASH Time Seen by Provider: 06/17/24 10:25 Source: patient and RN notes reviewed Mode of arrival: ambulatory Limitations: no limitations History of Present Illness HPI narrative: 78-year-old male presents [facility] complaining of a rash on his trunk for 10 days. Patient stated started on his left flank and now spread to the front of his abdomen and into his back. Patient reports the rash has crossed the midline of his back and abdomen. He is worried that he has shingles. Denies any pain to the lesions but reports pruritus. Denies any discharge, fevers, chills, body aches. He says he got the shingles vaccine about 2 years ago. He has been using moisturizing cream to his rash. Significant past medical history includes pacemaker and prior back surgery. Related Data Home Medications ?Medication ?Instructions ?Recorded ?Confirmed ?Last Taken ?Type amiodarone 200 mg tablet mg 06/14/24 Unknown History apixaban 5 mg tablet (Eliquis) mg 06/14/24 Unknown History carvedilol 25 mg tablet mg 06/14/24 Unknown History dapagliflozin propanediol 10 mg mg 06/14/24 Unknown History tablet (Farxiga) tizanidine 2 mg tablet mg 06/14/24 Unknown History Allergies Allergy/AdvReac Type Severity Reaction Status Date / Time No Known Allergies Allergy Verified 06/17/24 10:27 Review of Systems Review of Systems: CONSTITUTIONAL: Denies fever, chills, or sweats. EYES: Denies visual changes, redness, or discharge. ENT: Denies rhinorrhea, congestion, sore throat, or otalgia. CARDIOVASCULAR: Denies chest pain, palpitations, or edema. RESPIRATORY: Denies cough or dyspnea. GASTROINTESTINAL: Denies abdominal pain, nausea, vomiting, or diarrhea. GENITOURINARY: Denies dysuria or hematuria. SKIN: Positive for rash or itching. MUSCULOSKELETAL: Denies back pain, joint pain, or myalgia. NEUROLOGIC: Denies headache, numbness, or weakness. PSYCHIATRIC: Denies anxiety or depression. All other systems reviewed are negative, except as documented in HPI. PMFSH Comments At the time of my signature, I reviewed and agree with the nursing past medical, surgical, social, and family history. There is no relevant family history pertinent to the patient complaint. Exam Narrative: GENERAL: This is a well-nourished, well-developed adult, in no apparent distress. They are non ill-appearing, nontoxic appearing. HEAD: normocephalic, atraumatic. EYES: Sclera clear/white. Vision is grossly intact. EARS: External ears normal, Hearing grossly intact. NOSE: External nose normal THROAT: Mucous membranes moist, NECK: Normal range of motion CARDIOVASCULAR: Regular rate and rhythm without murmurs, gallops, or rubs. RESPIRATORY: Respiratory rate normal, respiratory effort is nonlabored. No respiratory distress GASTROINTESTINAL: Abdomen soft, non-tender, nondistended. SKIN: Macular nontender, red, rubor rash that is pruritic and glistening spreading across the back and abdomen primarily on the left side however does cross the midline. Excoriation present from scratching on his left back. No discharge, no erythema. There are satellite lesions present. Waxy like lesions throughout the patient's upper back consistent with seborrheic keratosis NEURO: awake, alert, and oriented to person, place and time. There were no obvious focal neurologic abnormalities. EXTREMITIES: No joint tenderness, effusion, or edema noted. BACK: Nontender without deformity. No CVA tenderness. Course Course Level of Care: Express Care Visit Vital Signs Vital signs: Vital Signs Temperature 97.2 F L 06/17/24 10:23 Pulse Rate 70 06/17/24 10:23 Respiratory Rate 18 06/17/24 10:23 Blood Pressure 129/80 06/17/24 10:23 Pulse Oximetry 96 06/17/24 10:23 Oxygen Delivery Room Air 06/17/24 10:23 Temperature 97.2 F L 06/17/24 10:23 Pulse Rate 70 06/17/24 10:23 Respiratory Rate 18 06/17/24 10:23 Blood Pressure 129/80 06/17/24 10:23 Pulse Oximetry 96 06/17/24 10:23 Oxygen Delivery Room Air 06/17/24 10:23 Reviewed MDM - Skin/Abscess/Foreign Bdy MDM Narrative Medical decision making narrative: Patient's rashes likely fungal. Unlikely shingles because the rash does cross the midline. Will treat empirically with nystatin and triamcinolone cream. Will also give him a course of doxycycline for prevention of a secondary infection for cellulitis. The patient has been scratching his rash a lot especially the back where it is very excoriated. Non adherent dressing applied to the left back where the worst of the excoriation is present. Discussed physical exam findings. Advised supportive measures and signs/symptoms to go to the ER. Pt is appropriate for outpt treatment and f/u. Differential Diagnosis Differential diagnosis: Likely other (Fungal skin infection, impetigo, herpes zoster, cellulitis) Critical Care Time Critical Care Time Critical Care Time: No Discharge Plan Discharge Clinical Impression: Dermatitis Patient Disposition: Home Condition: Stable Instructions: Dermatitis (ED) Additional Instructions: Please use the nystatin-triamcinolone ointment as directed. Apply this appointment only to the rash area. Please take doxycycline as directed. You will need to wear sunscreen while you take doxycycline if you are going to be o ut in the sun. Please follow-up with your primary care provider in 3-5 days the symptoms are not improving. If you develop any fevers, worsening redness or swelling, or the wound starts to have red streaking you need to go to the emergency department for further evaluation. Patient Language: Scottish Prescriptions: New nystatin-triamcinolone 100,000-0.1 unit/gram-% ointment 1 applic topical BID 14 Days Qty: 60 0RF doxycycline monohydrate 100 mg capsule 100 mg PO BID 7 Days Qty: 14 0RF No Action carvedilol 25 mg tablet tizanidine 2 mg tablet amiodarone 200 mg tablet Eliquis 5 mg tablet dapagliflozin propanediol [Farxiga] 10 mg tablet cephalexin 500 mg capsule 500 mg PO QID 7 Days Qty: 28 0RF Follow-up/Referrals: Eric,Rios Summers MD [Primary Care Provider] - Time of Disposition: 10:39
== END 2024-06-17 10:45 | disposition home or self-care (01) ==
PROVIDERS: PCP Family Medicine
DX: L30.9 Dermatitis, unspecified (principal); Z95.0 Presence of cardiac pacemaker
CPT/HCPCS: 99213; G0463